=== PATIENT | male | born 1945 | race Caucasian/White ===

== ENCOUNTER 2025-01-24 08:58 | Inpatient (IN) | payer MEDICARE, SELFPAY ==
--- OUTSIDE RECORDS SUMMARY | 2024-05-18 13:46 | XMS_ITS | Continuity of Care Document ---
Author Name [facility] Organization [facility] Care Team Providers Care Ranch Hand Supervisor Name Role Phone [facility] Unavailable Unavailable Immunizations Combined list of available immunizations from the Department of Defense and Veterans Affairs facilities. 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 Location Location Details Encounter Type Encounter Number Reason For Visit Attending Provider ADM Date DC Date Status Disposition Source [facility] Outpatient Encounter [id number] 05/18 [facility] Valera
[2025-01-24] VITALS (16 sets, daily range): BP systolic 91–150; BP diastolic 42–94; PULSE 67–87; RESP 12–25; TEMP 36.2–36.7; O2SAT 86–100; BMI 47.5
--- NOTE | 2025-01-24 | ECHO_ITS ---
Patient Info Name: Rigo Singh Age: 79 years : 1945 Gender: Male Ht: 71 in Wt: 351 lbs BSA: 2.91 m2 HR: 67 bpm BP: 150 / 42 mmHg Heart Rhythm: Atrial Fibrillation Technical Quality: Fair Exam Date: 01/24/2025 3:46 PM Patient Status: I Admit Date: 01/24/2025 Exam Type: CA echo doppler color flow Staff Referring Physician: Licha Jones Manufacturing Sales Representative: Inocente Norris III Ordering Physician: Mary Alice Vee Attending Provider: Joel Canas Summary 1. Poor Apical Windows, EF appears normal in PLAX/PSAX. 2. 'D-shaped' septum in both systole and diastole consistent with right ventricular volume and pressure overload. 3. The left ventricular diastolic function is abnormal. 4. There is moderately increased left ventricular wall thickness. 5. Left ventricular systolic function is normal, estimated at 60-65. 6. Left ventricular chamber dimension is normal. 7. Right ventricular chamber dimension is severely enlarged. 8. Right ventricular systolic function is reduced. 9. There is mild aortic valve regurgitation. 10. There is severe aortic valve calcification. 11. Abnormal appearance of the aortic valve. Thickened and calcified and nonmobile non coronary cusp. Recommend KIRSTIN for further anatomical evaluation. 12. There is mild mitral valve regurgitation. 13. There is moderate tricuspid valve regurgitation. 14. Moderate pulmonary hypertension, estimated pulmonary arterial systolic pressure is 50 mmHg. 15. There is mild pulmonic regurgitation. 16. The aortic root size at the sinus of Valsalva is mildly dilated. 17. The prox ascending aorta size is moderately dilated. Left Ventricle Left ventricular chamber dimension is normal. Left ventricular systolic function is normal, estimated at 60-65. There is moderately increased left ventricular wall thickness. The left ventricular diastolic function is abnormal. 'D-shaped' septum in both systole and diastole consistent with right ventricular volume and pressure overload. Right Ventricle Right ventricular chamber dimension is severely enlarged. Right ventricular systolic function is reduced. Left Atria Left atrial chamber dimension is severely enlarged. Right Atria Right atrial chamber dimension is severely enlarged. Atrial Septum Intact interatrial septum visualized by color flow imaging. Aortic Valve There is no aortic valve stenosis. There is mild aortic valve regurgitation. There is severe aortic valve calcification. Abnormal appearance of the aortic valve. Thickened and calcified and nonmobile non coronary cusp. Recommend KIRSTIN for further anatomical evaluation. Pulmonic Valve The pulmonic valve is normal. There is no pulmonic valve stenosis. There is mild pulmonic regurgitation. Mitral Valve The mitral valve has thickened leaflets. There is no mitral valve stenosis. There is mild mitral valve regurgitation. Tricuspid Valve The tricuspid valve leaflets are normal. There is no significant tricuspid valve stenosis. There is moderate tricuspid valve regurgitation. Moderate pulmonary hypertension, estimated pulmonary arterial systolic pressure is 50 mmHg. Pericardium/Pleural The pericardium appears normal. There is no pericardial effusion. Inferior Vena Cava Dilated inferior vena cava with <50% collapse upon inspiration consistent with elevated right atrial pressure, 15 mmHg. Aorta The aortic root size at the sinus of Valsalva is mildly dilated. The prox ascending aorta size is moderately dilated. Left Ventricular Outflow Tract Name Value Normal LVOT 2D LVOT Diameter 2.4 cm LVOT Doppler LVOT Peak Velocity 108 cm/s LVOT Peak Gradient 5 mmHg LVOT Mean Gradient 2 mmHg LVOT VTI 21 cm LVOT VTI/AV VTI Ratio 0.8 LVOT Stroke Volume 94 ml LVOT CO 19.4 l/min LVOT CI 6.7 l/min/m2 Pulmonic Valve Name Value Normal PV Doppler PV Peak Velocity 88 cm/s PV Peak Gradient 3 mmHg PV Mean Gradient 1 mmHg Mitral Valve Name Value Normal MV Doppler MV Peak Gradient 6 mmHg MV Mean Gradient 1 mmHg MV Area (Cont Eq VTI) 3.6 cm2 MV Diastolic Function MV E Peak Velocity 141 cm/s MV A Peak Velocity 45 cm/s MV E/A 3.1 MV Decel Time (PW) 178 ms MV Annular TDI MV E/e' (Septal) 10.5 MV E/e' (Lateral) 10.5 MV E/e' (Average) 10.5 Tricuspid Valve Name Value Normal TV Regurgitation Doppler TR Peak Velocity 294 cm/s TR Peak Gradient 35 mmHg Estimated PAP/RSVP RA Pressure 15 mmHg <=5 PA Systolic Pressure 50 mmHg <36 RV Systolic Pressure 50 mmHg <36 TV Annular TDI TV Lateral Adriana s' Velocity 11.2 cm/s >=9.5 Aortic Valve Name Value Normal AV Doppler AV Peak Velocity 148 cm/s AV Peak Gradient 9 mmHg AV Mean Gradient 4 mmHg AV VTI 27 cm AV Area (Cont Eq VTI) 3.5 cm2 >=3.0 AV Area (Cont Eq Isai) 3.3 cm2 AV DI (Isai) 0.73 AV Regurgitation 2D LVOT Area 4.5 cm2 Ventricles Name Value Normal LV Dimensions 2D/MM IVS Diastolic Thickness (2D) 1.4 cm 0.6-1.0 LVID Diastole (2D) 4.8 cm 4.2-5.8 LVIW Diastolic Thickness (2D) 1.3 cm 0.6-1.0 LVID Systole (2D) 3.2 cm 2.5-4.0 LVOT Diameter 2.4 cm LV Mass (2D Cubed) 263.68 g 88.00-224.00 LV Mass Index (2D Cubed) 91 g/m2 49-115 Relative Wall Thickness (2D) 0.54 <=0.42 LV Fractional Shortening/Ejection Fraction 2D/MM LV Fractional Shortening (2D) 34 % 25-43 LV EF (2D Teichholz) 62 % Atria Name Value Normal LA Dimensions LA Volume (4C A-L) 155 ml LA Volume (BP A-L) 160 ml RA Dimensions RA Systolic Major [place] Length (4C) 7.9 cm 2.1-2.7 RA Area (4C) 49.0 cm2 <=18.0 Report Signatures
--- NOTE | ~2025-01-24 | XR_ITS ---
XR chest 1V portable 01/24/2025 09:15 Indication: Shortness of breath Procedure: AP portable chest Comparison: No prior studies for comparison. Findings: Cardiomegaly. Bilateral airspace disease is present which may represent edema or less likely pneumonia. No significant effusion or pneumothorax. Impression: 1: Bilateral airspace disease, most likely edema. Pneumonia less favored. 2: Cardiomegaly. Reviewed, dictated and finalized at location O. Impression: 1: Bilateral airspace disease, most likely edema. Pneumonia less favored. 2: Cardiomegaly.
--- NOTE | ~2025-01-24 | XR_ITS ---
XR chest 1V portable 01/28/2025 07:28 Indication: Pneumonia Procedure: AP portable chest Comparison: Comparison to multiple prior studies sequentially, with oldest reviewed study dated 01/26/2025. Findings: Persistent edema. Cardiomegaly. No significant interval change. No significant effusion or pneumothorax. Impression: 1: Stable mild edema. Reviewed, dictated and finalized at location O. Impression: 1: Stable mild edema.
--- NOTE | ~2025-01-24 | CT_ITS ---
EXAMINATION: 2. DATE: 01/24/2025 10:44 CDT INDICATION: Cough. Shortness of breath. Hypoxia. TECHNIQUE: Computed tomographic angiography (CTA) of the chest was performed with intravenous contrast. The dose-length product was 948.70 mGy-cm. Maximum intensity projection 3D-reconstructions of the aorta and other arteries were constructed by the technologist on a separate workstation. COMPARISON: None. FINDINGS: There is a 5 cm left thyroid nodule. A thyroid ultrasound is recommended. Small amount of nonspecific fluid in the visualized upper abdomen. Indeterminant 1.9 cm low-density lesion in the left lobe of the liver. There is a 6.7 cm cystic structure in the left upper abdomen which may represent an exophytic left renal cyst. Thoracic aorta is not aneurysmal. Tiny left-sided pleural effusion. Small right-sided pleural effusion. Heart is moderately enlarged. There are a few coronary artery calcifications. No pulmonary embolism identified. There are a few mildly enlarged mediastinal and hilar lymph nodes including a 2.0 cm left hilar lymph node, 1.5 cm subcarinal lymph node and a 1.3 cm right hilar lymph node. Mild elevation of the right hemidiaphragm. There is an enlarged 2.1 cm right supraclavicular lymph node. Moderate-sized patchy and groundglass opacities scattered throughout both lungs. Bones appear osteopenic. Multilevel degenerative change in the visualized spine. IMPRESSION: 1. No pulmonary embolism identified. 2. Moderate-sized patchy and groundglass opacities scattered throughout both lungs. Differential includes but is not limited to edema or pneumonia. Recommend follow-up to resolution. 3. Small right-sided pleural effusion. Tiny left-sided pleural effusion. 4. There is a 5 cm left thyroid nodule. A thyroid ultrasound is recommended. 5. Enlarged mediastinal and hilar lymph nodes. In addition, there is an enlarged 2.1 cm right supraclavicular lymph node. Differential includes inflammatory/infectious process. However, a malignant process is not excluded. A follow-up chest CT in 2-4 weeks following treatment is recommended for further assessment. 6. Indeterminate 1.9 cm low-density lesion in the left lobe of the liver. A liver mass CT is recommended. 7. Small amount of nonspecific fluid in the visualized upper abdomen. 8. There is a 6.7 cm cystic structure in the left upper abdomen which may represent an exophytic left renal cyst. Reviewed, dictated and finalized at location Q. IMPRESSION: 1. No pulmonary embolism identified. 2. Moderate-sized patchy and groundglass opacities scattered throughout both carlie ngs. Differential includes but is not limited to edema or pneumonia. Recommend follow-up to resolution. 3. Small right-sided pleural effusion. Tiny left-sided pleural effusion. 4. There is a 5 cm left thyroid nodule. A thyroid ultrasound is recommended. 5. Enlarged mediastinal and hilar lymph nodes. In addition, there is an enlarge d 2.1 cm right supraclavicular lymph node. Differential includes inflammatory/i nfectious process. However, a malignant process is not excluded. A follow-up est CT in 2-4 weeks following treatment is recommended for further assessment. 6. Indeterminate 1.9 cm low-density lesion in the left lobe of the liver. A chava er mass CT is recommended. 7. Small amount of nonspecific fluid in the visualized upper abdomen. 8. There is a 6.7 cm cystic structure in the left upper abdomen which may repre sent an exophytic left renal cyst.
--- NOTE | ~2025-01-24 | XR_ITS ---
EXAMINATION: XR chest 1V portable, 01/26/2025 16:18 CDT HISTORY: chf COMPARISON: No comparisons available. Technique: Single view. Findings: There are bilateral infiltrates superimposed on chronic lung disease. Moderate pulmonary venous congestion. No pneumothorax. Moderate cardiomegaly. Mediastinal and hilar contours are within normal limits. Bony thorax no acute abnormality. Impression: CHF. Superimposed probable pneumonia Reviewed, dictated and finalized at location A. Impression: CHF. Superimposed probable pneumonia
--- NOTE | ~2025-01-24 | CT_ITS ---
EXAMINATION: CTA abdomen pelvis DATE: 01/25/2025 10:10 CDT INDICATION: Liver mass seen on CTA TECHNIQUE: Computed tomographic angiography (CTA) of the abdomen and pelvis was performed with intravenous contrast. The dose-length product was 1940.88 mGy-cm. Maximum intensity projection 3D-reconstructions of the aorta and other arteries were constructed by the technologist on a separate workstation. COMPARISON: CTA chest 01/24/2025 FINDINGS: Small right-sided pleural effusion. Tiny left-sided pleural effusion. Redemonstration of a moderate-sized patchy groundglass opacity scattered throughout the visualized mid and lower lungs similar to the CT study from 01/24/2025.Small amount of perihepatic fluid. Spleen is heterogeneous presumably due to the timing of the contrast bolus. Adrenal glands are grossly unremarkable. Pancreas is unremarkable. Gallbladder is unremarkable. There are a few too small to characterize low-attenuation lesions in the kidneys. There is a 6.3 cm left renal cyst.There is a 3.3 cm left renal cyst. There is a 6.9 cm be nign cyst in the right kidney. Abdominal aorta is partially calcified but is not aneurysmal. There is a 1.9 cm cyst in the left lobe of the liver. No enlarged lymph nodes identified in the abdomen. Bladder is unremarkable. Small to moderate amount of nonspecific anasarca in the subcutaneous fat in the abdomen and pelvis, greater on the right. Small moderate amount of fluid in the pelvis. Moderate amount of stool. Mild diverticulosis. No dilated bowel loops. Borderline-enlarged nonspecific bilateral inguinal lymph nodes. Bones appear osteopenic. Multilevel degenerative change in the visualized spine. Small amount of fat stranding scattered throughout the abdomen and pelvis. CTA: Mild to moderate atherosclerotic disease in the visualized arterial vasculature in the abdomen and pelvis. Abdominal aorta is not aneurysmal. Small amount of atherosclerotic plaque at the origins of the superior mesenteric artery, celiac artery, renal arteries, inferior mesenteric artery. The visualized celiac artery and its branches, superior mesenteric artery and its branches, inferior mesenteric artery and single bilateral renal arteries are patent. Mild to moderate atherosclerotic disease in the bilateral common iliac arteries, bilateral internal/external iliac arteries bilateral common femoral arteries. IMPRESSION: 1. There is a 1.9 cm cyst in the left lobe of the liver. No liver mass identified. 2. Bilateral renal cysts. 3. Small right-sided pleural effusion. Tiny left-sided pleural effusion. 4. Redemonstration of a moderate-sized patchy groundglass opacity scattered throughout the visualized mid and lower lungs similar to the CT study from 01/24/2025. 5. Small amount of nonspecific fat stranding and fluid about the liver. Small to moderate amount of fluid and a small amount of fat stranding in the pelvis. 6. Small to moderate amount of nonspecific anasarca and subcutaneous fat stranding in the abdomen and pelvis, greater on the right. Reviewed, dictated and finalized at location Q. IMPRESSION: 1. There is a 1.9 cm cyst in the left lobe of the liver. No liver mass identifi ed. 2. Bilateral renal cysts. 3. Small right-sided pleural effusion. Tiny left-sided pleural effusion. 4. Redemonstration of a moderate-sized patchy groundglass opacity scattered thr oughout the visualized mid and lower lungs similar to the CT study from 01/25/20 25. 5. Small amount of nonspecific fat stranding and fluid about the liver. Small t o moderate amount of fluid and a small amount of fat stranding in the pelvis. 6. Small to moderate amount of nonspecific anasarca and subcutaneous fat strand ing in the abdomen and pelvis, greater on the right.
--- OUTSIDE RECORDS SUMMARY | 2025-01-24 08:15 | XMS_ITS | Encounter Summary ---
Author Organization [facility] Healthcare Address [address] [place] [address] Care Team Providers Care Residential Real Estate Sales Manager Name Role Phone Dequan Flores MD Primary Care Provider + Encounter Details Date Type Department Care Team (Late st Contact Info) Description 01/24/2025 8:15 AM CDT Office Visit [facility] at [address] [id number] Rachell Rosales PA [address] [place] [address] [address] [place] [address] Shortness of breath (Primary Dx); Hypoxia Social History Tobacco Use Types Packs/Day Years Used Date Smoking Tobacco: Former Cigarettes Q uit: 1998 Smokeless Tobacco: Never PHQ-2 Answer Date Recorded PHQ-2 Total Score (If total score is 3 or more points, staff should administer the PHQ-9) 0 09/21/2023 Sex and Gender Information Value Date Recorded Sex Assigned at Not on file Legal Sex Male 7:44 PM PICCOLOIST Gender Identity Not on file Sexual Orientation Not on file documented as of this encounter Last Filed Vital Signs Vital Sign Reading Time Taken Comments Blood Pressure 138/72 01/24/2025 8:19 AM CDT Pulse 98 01/24/2025 8:19 AM CDT Temperature 36.7 C (98.1 F) 01/24/2025 8:19 AM CDT Respiratory Rate - - Oxygen Saturation 85% 01/24/2025 8:21 AM CDT Without O2 Inhaled Oxygen Concentration - - Weight - - Height 180.3 cm (5' 10.98) 01/24/2025 8:19 AM C DT Body Mass Index - - documented in this encounter Progress Notes * Rachell Rosales PA - 01/24/2025 8:15 AM CDT Images from the original note were not included. Subjective/Objective Patient ID: Rigo Singh is a 79 y.o. male. Chief Complaint No chief complaint on file. Pt presents w/ sob increasing x few weeks. Reports cold symptoms x few weeks, did z pack and flonase w/ no relief. Presents at 82% on RA c/o sob. Denies cp or leg swelling. No fevers. Review of Systems All systems reviewed and are negative or non contributory for this patient's presentation today other than as stated in the HPI . Physical Exam Constitutional: Appearance: He is obese. HENT: Head: Normocephalic and atraumatic. Mouth/Throat: Pharynx: Oropharynx is clear. Eyes: Pupils: Pupils are equal, round, and reactive to light. Cardiovascular: Rate and Rhythm: Normal rate and regular rhythm. Pulmonary: Effort: Respiratory distress (mild tachypnea) present. Breath sounds: No wheezing or rhonchi. Musculoskeletal: General: Normal range of motion. Cervical back: Normal range of motion. Skin: General: Skin is warm and dry. Neurological: General: No focal deficit present. Mental Status: He is alert and oriented to person, place, and time. Psychiatric: Mood and Affect: Mood normal. Behavior: Behavior normal. Vitals: 01/24/25 0819 01/24/25 0821 BP: 138/72 Pulse: 98 Temp: 36.7 ??C (98.1 ??F) SpO2: 92% (!) 85% Height: 180.3 cm (5' 10.98) Assessment/Plan Pt presents to front desk person w/ increasing sob x few weeks w/ associated cold symptoms. Immediately given a wheelchair due to the severity of his sob and labored breathing, put on pulse ox and found to be hypoxic w/ oxygen of 82% on RA. Hx of afib, CVA, DM, on eliquis. No hx of asthma or COPD. Lungs clear on exam, no wheezing. Placed on 2L nasal canula and oxygen increased to 92-93%. Pt denies chestpain. EMS was called, pt transported to ED to find underlying cause of hypoxia including cardiac orrespiratory etiology. Diagnoses and all orders for this visit: Shortness of breath (Primary) Hypoxia No results found for this or any previous visit (from the past 4 hours). Disposition ER via EMS JARAD Hoyos 01/24/25 8:32 AM Cosigned by Asif Vail MD at 01/24/2025 8:41 AM CDT documented in this encounter Plan of Treatment Not on file documented as of this encounter Visit Diagnoses Diagnosis Shortness of breath- Primary Hypoxia Hypoxemia documented in this encounter Care Teams Residential Real Estate Sales Manager Relationship Specialty Start Date End Date Dequan Flores MD PCP - General 11/20/16 documented as of this encounter
--- NOTE | 2025-01-24 09:01 | ECG_ITS ---
Test Date: 2025-01-24 09:07:39 Measurements Intervals [place] Rate: 78 P: 0 ID: 0 QRS: 31 QRSD: 110 T: 41 QT: 406 QTc: 464 Interpretive Statements ATRIAL FIBRILLATION MINIMAL Q WAVES- INFERIOR LEADS BASELINE ARTIFACT- II, III ABNORMAL ECG No previous ECG available for comparison Electronically Signed On 01-24-2025 09:20:12 CDT by Chad oGdoy D.O.
[2025-01-24 09:32] LABS: Hematocrit 35.9 % (42.0-52.0); Hemoglobin 10.4 g/dL (14.0-18.0); Immature Granulocyte Percent A 0.6 % (0-0.5); Immature Platelet Fraction Pct 6.5 % (0.9-11.2); Lymphocytes Absolute Auto 1.00 K/mm3 (0.9-3.2); Mean Corpuscular HGB Conc 29.0 g/dl (32-36); Mean Corpuscular Hemoglobin 22.9 pg (26-34); Mean Corpuscular Volume 78.9 fl (80-100); Nucleated Red Blood Cells Absolute Auto 0.000 K/mm3 (0.0-0.012); Nucleated Red Blood Cells Perc 0.0 % (0.0-0.2); Platelet Count Result 93 k/mm3 (150-375); Red Blood Count 4.55 M/mm3 (4.6-6.20); White Blood Count 5.0 K/mm3 (4.5-10.0)
--- OUTSIDE RECORDS SUMMARY | 2025-01-24 09:38 | XMS_ITS | Clinical Summary ---
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 and pelvic lymph node dissection. Located in the there are multiple colonic diverticula, without evidence of diverticulitis. Additionally noted is a small hiatal hernia. The remainder of the gastrointestinal tract is unremarkable. There is no abdominal or pelvic lymphadenopathy. No intraperitoneal free fluid or free air. There is atherosclerotic calcification of the abdominal aorta and branch vessels. Bone windows demonstrate no suspicious lytic or blastic osseous lesions. IMPRESSION: 1. No acute CT abnormality of the chest, abdomen, pelvis. 2. Indeterminate 1.2 cm low-attenuation lesion within hepatic segment 2. Further evaluation with liver protocol CT or MRI is recommended on a non-emergent basis. 3. Indeterminate large left thyroid nodule, with retrosternal extension. If clinically indicated, this could be further evaluated with dedicated thyroid ultrasound. Requested By: ASHLEY SCHNEIDER M.D. Dictated By: ROSALINDA PUENTE M.D. on Dec 10 2014 10:26A This document has been electronically signed by: PUNEET YEBOAH M.D. on Dec 10 2014 11:37A [id number] Historical Provider MD [facility] CT PROCEDURES Final R esult from Last 3 Months or Most Recently Relevant to Health Maintenance Insurance MEDICARE [facility] MEDICARE [facility] Address: [facility] [address] [place] [address] [facility] Care Teams Shrinker Relationship Specialty Start Date End Date Dequan Flores MD PCP - General 11/20/16
--- OUTSIDE RECORDS SUMMARY | 2025-01-24 09:38 | XMS_ITS | Encounter Summary ---
Author Organization [facility] Healthcare Address [address] [place] [address] Care Team Providers Care Indoor Plant Technician Name Role Phone Dequan Flores MD Primary Care Provider + Encounter Details Date Type Department Care Team (Latest Contact Info) Description 12/05/2024 Results Follow-Up Cardiology Juliano Ordonez MD [address] [id number] Lipid panel Social History Tobacco Use Types Packs/Day Years Used Date Smoking Tobacco: Former Cigarettes Q uit: 1998 Smokeless Tobacco: Never PHQ-2 Answer Date Recorded PHQ-2 Total Score (If total score is 3 or more points, staff should administer the PHQ-9) 0 09/21/2023 Sex and Gender Information Value Date Recorded Sex Assigned at Not on file Legal Sex Male 7:44 PM [employer] Gender Identity Not on file Sexual Orientation Not on file documented as of this encounter Plan of Treatment Not on file documented as of this encounter Visit Diagnoses Not on filedocumented in this encounter Care Teams Indoor Plant Technician Relationship Specialty Start Date End Date Dequan Flores MD PCP - General 11/20/16 documented as of this encounter
[2025-01-24 09:47] LABS: Alanine Aminotransferase 14 U/L (6-50); Albumin Level 3.6 g/dL (3.5-5.1); Alkaline Phosphatase 88 U/L (38-126); Anion Gap 7 mmol/L (4-12); Aspartate Amino Transferase 18 U/L (17-59); Bilirubin,Total 1.7 mg/dL (0.2-1.3); Blood Urea Nitrogen 15 mg/dL (9-20); Calcium 8.6 mg/dL (8.4-10.2); Carbon Dioxide 25 mmol/L (22-30); Chloride 107 mmol/L (98-107); Estimated CRCL calculation 113 ml/min; Estimated Glomerular Filt Rate > 60; Glucose 160 mg/dL (65-110); Potassium 3.6 mmol/L (3.4-5.0); Sodium 139 mmol/L (137-145); Total Protein 6.9 g/dL (6.3-8.2)
[2025-01-24 10:07] LABS: Anisocytosis 1+
[2025-01-24 10:08] LABS: Influenza A QL RT-PCR Negative (Negative); Influenza B QL RT-PCR Negative (Negative); RSV RNA, RT-PCR Negative (Negative); SARS-CoV-2 RNA PCR Negative (Negative)
[2025-01-24 10:08] LABS: Hypochromasia Occasional; Schistocytes None Seen
--- NOTE | 2025-01-24 10:23 | ED_ITS ---
HPI - SOB/Dyspnea General Chief Complaint: Shortness of Breath/Dyspnea <JA Sim Last Filed: 01/24/25 10:53> Stated Complaint: SOB <JA Sim Last Filed: 01/24/25 10:53> Time Seen by Provider: 01/24/25 09:02 <JA Sim Last Filed: 01/24/25 10:53> Source: patient <JA Sim Last Filed: 01/24/25 10:53> Mode of arrival: EMS <JA Sim Last Filed: 01/24/25 10:53> Limitations: no limitations <JA Sim Last Filed: 01/24/25 10:53> History of Present Illness HPI Narrative: Patient is a 79-year-old male, with past medical history of hypertension, diabetes, AFib on Eliquis, who presents the ED via EMS with report of shortness of breath. Patient reports he has not felt well for the past 2 weeks. Reports sinus congestion/pressure, dry cough, shortness of breath. He went to an urgent care today and was noted to be hypoxic down to 85% on room air. He was placed on 4 L nasal cannula. Patient denies previous oxygen requirement. He denies previous history of CHF or COPD. He does report swelling in his lower extremities, but states this is chronic. Denies worsening of this recently. Denies chest pain. Denies fevers. Patient mentions he recently had black mold that was treated in his basement. < JA Sim Last Filed: 01/24/25 10:53> Related Data Allergies/Adverse Reactions: Allergies Allergy/AdvReac Type Severity Reaction Status Date / Time No Known Allergies Allergy Verified 01/24/25 09:17 <JA Sim Last Filed: 01/24/25 10:53> Review of Systems 2 Review of Systems: All systems reviewed & are unremarkable except as noted in HPI. <JA Sim Last Filed: 01/24/25 10:53> All systems reviewed & are unremarkable except as noted in HPI and below < Licha Jones PA-C - Last Filed: 01/24/25 10:53> [facility] Past Medical History Medical History: Medical History (Updated 01/24/25 @ 14:26 by Kaye Wu PA-C) Diabetes Hypertension Afib <Licha Jones PA-C - Last Filed: 01/24/25 10:53> Exam 2 Narrative: GENERAL: Well appearing, morbidly obese with BMI of 49.0, non-toxic, in no acute distress. HEAD: Normocephalic, atraumatic. RESPIRATORY: Airway patent, respirations nonlabored, mildly tachypneic. Decreased lung sounds in bases bilaterally. No wheezing. CARDIOVASCULAR: Regular rate and rhythm without murmurs, rubs, or gallops. MUSCULOSKELETAL: Moves all extremities. No gross deformities. Mild pitting edema to BLE, symmetric, no cellulitic changes. SKIN: Warm, dry, normal color. NEURO: A&O X3. Speech clear. Cranial nerves II-XII grossly intact. Steady gait. No ataxic movements. PSYCHIATRIC: Appropriate mood and affect. Normal interaction. <Licha Jones PA-C - Last Filed: 01/24/25 10:53> Course Course Emergency Course: Patient updated on his workup and need for admission <JEROME Kohli - Last Filed: 01/24/25 14:26> Consultations Consultation #1: Spoke with hospitalist about patient and workup who accepts admission < Kaye Wu PA-C - Last Filed: 01/24/25 14:26> Date: 01/24/25 <JA Kohli Last Filed: 01/24/25 14:26> Vital Signs Vital signs: Vital Signs Pulse Rate 73 01/24/25 09:01 Respiratory Rate 22 H 01/24/25 09:01 Blood Pressure 126/69 01/24/25 09:01 Pulse Oximetry 86 L 01/24/25 09:01 Oxygen Delivery Room Air 01/24/25 09:01 Temperature 98.1 F 01/24/25 09:14 Pulse Rate 76 01/24/25 13:59 Respiratory Rate 17 01/24/25 13:59 Blood Pressure 126/94 H 01/24/25 13:59 Pulse Oximetry 97 01/24/25 13:59 Oxygen Delivery Nasal Cannula 01/24/25 09:24 Oxygen Flow Rate 4 01/24/25 09:24 <Licha Jones PA-C - Last Filed: 01/24/25 10:53> Vital Signs Pulse Rate 73 01/24/25 09:01 Respiratory Rate 22 H 01/24/25 09:01 Blood Pressure 126/69 01/24/25 09:01 Pulse Oximetry 86 L 01/24/25 09:01 Oxygen Delivery Room Air 01/24/25 09:01 Temperature 98.1 F 01/24/25 09:14 Pulse Rate 76 01/24/25 13:59 Respiratory Rate 17 01/24/25 13:59 Blood Pressure 126/94 H 01/24/25 13:59 Pulse Oximetry 97 01/24/25 13:59 Oxygen Delivery Nasal Cannula 01/24/25 09:24 Oxygen Flow Rate 4 01/24/25 09:24 <Kaye Wu PA-C - Last Filed: 01/24/25 14:26> MDM - SOB/Dyspnea MDM Narrative Medical decision making narrative: Patient presented to ED with 2 week history of cough, congestion, URI symptoms, shortness of breath. Went to an urgent care today and was found to be hypoxic on room air. Placed on oxygen and sent here for further evaluation. Patient denies previous oxygen requirement. Currently on 4 L nasal cannula. Oxygen saturations remained stable on this currently. Vital signs are otherwise stable. Afebrile. Blood pressure stable. Cbc without leukocytosis. Mild anemia noted at 10.4. Slightly microcytic. No records to compare to. Thrombocytopenia also noted with platelet count of 93. Again no records to compare to. CMP is unremarkable. Kidney function is stable. Slight elevation of total bilirubin to 1.7, although remainder of LFTs are within normal range. Viral swabs are negative EKG with rate controlled AFib, no significant concerning ST changes Chest x-ray with cardiomegaly, likely pulmonary edema. Pneumonia last favored. Trop undetectable BNP pending CTA of chest was obtained. Care signed out to Kaye Wu PA-C at shift change pending remainder of w/u and admission to hospital. <Licha Jones PA-C - Last Filed: 01/24/25 10:53> Patient presented to ED with 2 week history of cough, congestion, URI symptoms, shortness of breath. Went to an urgent care today and was found to be hypoxic on room air. Placed on oxygen and sent here for further evaluation. Patient denies previous oxygen requirement. Currently on 4 L nasal cannula. Oxygen saturations remained stable on this currently. Vital signs are otherwise stable. Afebrile. Blood pressure stable. Cbc without leukocytosis. Mild anemia noted at 10.4. Slightly microcytic. No records to compare to. Thrombocytopenia also noted with platelet count of 93. Again no records to compare to. CMP is unremarkable. Kidney function is stable. Slight elevation of total bilirubin to 1.7, although remainder of LFTs are within normal range. Viral swabs are negative EKG with rate controlled AFib, no significant concerning ST changes Chest x-ray with cardiomegaly, likely pulmonary edema. Pneumonia last favored. Trop undetectable BNP pending CTA of chest was obtained. Care signed out to Kaye Wu PA-C at shift change pending remainder of w/u and admission to hospital. CTA showing no evidence for PE. Moderate size patchy ground-glass opacities scattered throughout the lungs. Bilateral pleural effusions. Thyroid nodule. Lymphadenopathy. Liver lesion. Renal cyst. Blood cultures obtained. Patient started on IV antibiotics. Spoke with hospitalist about patient and workup who accepts admission <Kaye Wu PA-C - Last Filed: 01/24/25 14:26> Differential Diagnosis Differential diagnosis: Likely congestive heart failure, community acquired pneumonia and pulmonary embolism <Kaye Wu PA-C - Last Filed: 01/24/25 14:26> Medical Records Attestation: I reviewed the patient's medical records. <Licha Jones PA-C - Last Filed: 01/24/25 10:53> Lab Data Attestation: I reviewed the patient's lab results. <JA Sim Last Filed: 01/24/25 10:53> Result diagrams: 01/24/25 09:21 01/24/25 09:21 <JA Sim Last Filed: 01/24/25 10:53> Labs: Lab Results 01/24/25 01/24/25 01/24/25 Range/Units 09:21 09:24 10:54 WBC 5.0 (4.5-10.0) K/mm3 RBC 4.55 L (4.6-6.20) M/mm3 Hgb 10.4 L (14.0-18.0) g/dL Hct 35.9 L (42.0-52.0) % MCV 78.9 L (80-100) fl MCH 22.9 L (26-34) pg MCHC 29.0 L (32-36) g/dl RDW 17.1 H (11.5-14.5) % Plt Count 93 L (150-375) k/mm3 MPV 9.9 (7.4-10.4) fl Immature Gran % (Auto) 0.6 H (0-0.5) % Neut % (Auto) 68.9 (45.5-73.1) % Lymph % (Auto) 20.2 (18.3-44.2) % Arthur % (Auto) 9.1 H (2.6-8.5) % Eos % (Auto) 0.8 (0-4.4) % Baso % (Auto) 0.4 (0.2-1.2) % Lymph # (Auto) 1.00 (0.9-3.2) K/mm3 Arthur # (Auto) 0.5 (0.1-0.6) K/mm3 Eos # (Auto) 0.0 (0-0.3) K/mm3 Baso # (Auto) 0.0 (0.0-0.1) K/mm3 Abs Immat Gran (auto) 0.03 (0.00-0.031) K/mm3 Absolute Neuts (auto) 3.4 (1.3-6.7) K/mm3 Absolute Nucleated RBC 0.000 (0.0-0.012) K/mm3 Band Neutrophils % Not Reportable Nucleated RBC % 0.0 (0.0-0.2) % Platelet Estimate Decreased (Adequate) % Immature Plt Fraction 6.5 (0.9-11.2) % Hypochromasia Occasional Anisocytosis 1+ Schistocytes None seen PT 19.7 H (11.1-14.7) Seconds INR 1.7 APTT 33.8 (22.3-36.8) Seconds Methemoglobin 0.3 (0-1.5) %THb Sodium 139 (137-145) mmol/L Potassium 3.6 (3.4-5.0) mmol/L Chloride 107 (98-107) mmol/L Carbon Dioxide 25 (22-30) mmol/L Anion Gap 7 (4-12) mmol/L BUN 15 (9-20) mg/dL Creatinine 0.72 (0.7-1.3) mg/dL Estim Creat Clear Calc 113 ml/min Estimated GFR > 60 (59 - ) Glucose 160 H (65-110) mg/dL Calcium 8.6 (8.4-10.2) mg/dL Total Bilirubin 1.7 H (0.2-1.3) mg/dL AST 18 (17-59) U/L ALT 14 (6-50) U/L Alkaline Phosphatase 88 (38-126) U/L Troponin I < 0.012 (0.000-0.034) ng/mL NT-Pro-B Natriuret Pep (19.9-100) pg/mL Total Protein 6.9 (6.3-8.2) g/dL Albumin 3.6 (3.5-5.1) g/dL Influenza A (RT-PCR) Negative (Negative) Influenza B (RT-PCR) Negative (Negative) RSV (RT-PCR) Negative (Negative) SARS-CoV-2 RNA (RT-PCR) Negative (Negative) 01/24/25 Range/Units 11:22 WBC (4.5-10.0) K/mm3 RBC (4.6-6.20) M/mm3 Hgb (14.0-18.0) g/dL Hct (42.0-52.0) % MCV (80-100) fl MCH (26-34) pg MCHC (32-36) g/dl RDW (11.5-14.5) % Plt Count (150-375) k/mm3 MPV (7.4-10.4) fl Immature Gran % (Auto) (0-0.5) % Neut % (Auto) (45.5-73.1) % Lymph % (Auto) (18.3-44.2) % Arthur % (Auto) (2.6-8.5) % Eos % (Auto) (0-4.4) % Baso % (Auto) (0.2-1.2) % Lymph # (Auto) (0.9-3.2) K/mm3 Arthur # (Auto) (0.1-0.6) K/mm3 Eos # (Auto) (0-0.3) K/mm3 Baso # (Auto) (0.0-0.1) K/mm3 Abs Immat Gran (auto) (0.00-0.031) K/mm3 Absolute Neuts (auto) (1.3-6.7) K/mm3 Absolute Nucleated RBC (0.0-0.012) K/mm3 Band Neutrophils % Nucleated RBC % (0.0-0.2) % Platelet Estimate (Adequate) % Immature Plt Fraction (0.9-11.2) % Hypochromasia Anisocytosis Schistocytes PT (11.1-14.7) Seconds INR APTT (22.3-36.8) Seconds Methemoglobin (0-1.5) %THb Sodium (137-145) mmol/L Potassium (3.4-5.0) mmol/L Chloride (98-107) mmol/L Carbon Dioxide (22-30) mmol/L Anion Gap (4-12) mmol/L BUN (9-20) mg/dL Creatinine (0.7-1.3) mg/dL Estim Creat Clear Calc ml/min Estimated GFR (59 - ) Glucose (65-110) mg/dL Calcium (8.4-10.2) mg/dL Total Bilirubin (0.2-1.3) mg/dL AST (17-59) U/L ALT (6-50) U/L Alkaline Phosphatase (38-126) U/L Troponin I (0.000-0.034) ng/mL NT-Pro-B Natriuret Pep 1030 H (19.9-100) pg/mL Total Protein (6.3-8.2) g/dL Albumin (3.5-5.1) g/dL Influenza A (RT-PCR) (Negative) Influenza B (RT-PCR) (Negative) RSV (RT-PCR) (Negative) SARS-CoV-2 RNA (RT-PCR) (Negative) <JA Sim Last Filed: 01/24/25 10:53> Lab Results 01/24/25 01/24/25 01/24/25 Range/Units 09:21 09:24 10:54 WBC 5.0 (4.5-10.0) K/mm3 RBC 4.55 L (4.6-6.20) M/mm3 Hgb 10.4 L (14.0-18.0) g/dL Hct 35.9 L (42.0-52.0) % MCV 78.9 L (80-100) fl MCH 22.9 L (26-34) pg MCHC 29.0 L (32-36) g/dl RDW 17.1 H (11.5-14.5) % Plt Count 93 L (150-375) k/mm3 MPV 9.9 (7.4-10.4) fl Immature Gran % (Auto) 0.6 H (0-0.5) % Neut % (Auto) 68.9 (45.5-73.1) % Lymph % (Auto) 20.2 (18.3-44.2) % Arthur % (Auto) 9.1 H (2.6-8.5) % Eos % (Auto) 0.8 (0-4.4) % Baso % (Auto) 0.4 (0.2-1.2) % Lymph # (Auto) 1.00 (0.9-3.2) K/mm3 Arthur # (Auto) 0.5 (0.1-0.6) K/mm3 Eos # (Auto) 0.0 (0-0.3) K/mm3 Baso # (Auto) 0.0 (0.0-0.1) K/mm3 Abs Immat Gran (auto) 0.03 (0.00-0.031) K/mm3 Absolute Neuts (auto) 3.4 (1.3-6.7) K/mm3 Absolute Nucleated RBC 0.000 (0.0-0.012) K/mm3 Band Neutrophils % Not Reportable Nucleated RBC % 0.0 (0.0-0.2) % Platelet Estimate Decreased (Adequate) % Immature Plt Fraction 6.5 (0.9-11.2) % Hypochromasia Occasional Anisocytosis 1+ Schistocytes None seen PT 19.7 H (11.1-14.7) Seconds INR 1.7 APTT 33.8 (22.3-36.8) Seconds Methemoglobin 0.3 (0-1.5) %THb Sodium 139 (137-145) mmol/L Potassium 3.6 (3.4-5.0) mmol/L Chloride 107 (98-107) mmol/L Carbon Dioxide 25 (22-30) mmol/L Anion Gap 7 (4-12) mmol/L BUN 15 (9-20) mg/dL Creatinine 0.72 (0.7-1.3) mg/dL Estim Creat Clear Calc 113 ml/min Estimated GFR > 60 (59 - ) Glucose 160 H (65-110) mg/dL Calcium 8.6 (8.4-10.2) mg/dL Total Bilirubin 1.7 H (0.2-1.3) mg/dL AST 18 (17-59) U/L ALT 14 (6-50) U/L Alkaline Phosphatase 88 (38-126) U/L Troponin I < 0.012 (0.000-0.034) ng/mL NT-Pro-B Natriuret Pep (19.9-100) pg/mL Total Protein 6.9 (6.3-8.2) g/dL Albumin 3.6 (3.5-5.1) g/dL Influenza A (RT-PCR) Negative (Negative) Influenza B (RT-PCR) Negative (Negative) RSV (RT-PCR) Negative (Negative) SARS-CoV-2 RNA (RT-PCR) Negative (Negative) 01/24/25 Range/Units 11:22 WBC (4.5-10.0) K/mm3 RBC (4.6-6.20) M/mm3 Hgb (14.0-18.0) g/dL Hct (42.0-52.0) % MCV (80-100) fl MCH (26-34) pg MCHC (32-36) g/dl RDW (11.5-14.5) % Plt Count (150-375) k/mm3 MPV (7.4-10.4) fl Immature Gran % (Auto) (0-0.5) % Neut % (Auto) (45.5-73.1) % Lymph % (Auto) (18.3-44.2) % Arthur % (Auto) (2.6-8.5) % Eos % (Auto) (0-4.4) % Baso % (Auto) (0.2-1.2) % Lymph # (Auto) (0.9-3.2) K/mm3 Arthur # (Auto) (0.1-0.6) K/mm3 Eos # (Auto) (0-0.3) K/mm3 Baso # (Auto) (0.0-0.1) K/mm3 Abs Immat Gran (auto) (0.00-0.031) K/mm3 Absolute Neuts (auto) (1.3-6.7) K/mm3 Absolute Nucleated RBC (0.0-0.012) K/mm3 Band Neutrophils % Nucleated RBC % (0.0-0.2) % Platelet Estimate (Adequate) % Immature Plt Fraction (0.9-11.2) % Hypochromasia Anisocytosis Schistocytes PT (11.1-14.7) Seconds INR APTT (22.3-36.8) Seconds Methemoglobin (0-1.5) %THb Sodium (137-145) mmol/L Potassium (3.4-5.0) mmol/L Chloride (98-107) mmol/L Carbon Dioxide (22-30) mmol/L Anion Gap (4-12) mmol/L BUN (9-20) mg/dL Creatinine (0.7-1.3) mg/dL Estim Creat Clear Calc ml/min Estimated GFR (59 - ) Glucose (65-110) mg/dL Calcium (8.4-10.2) mg/dL Total Bilirubin (0.2-1.3) mg/dL AST (17-59) U/L ALT (6-50) U/L Alkaline Phosphatase (38-126) U/L Troponin I (0.000-0.034) ng/mL NT-Pro-B Natriuret Pep 1030 H (19.9-100) pg/mL Total Protein (6.3-8.2) g/dL Albumin (3.5-5.1) g/dL Influenza A (RT-PCR) (Negative) Influenza B (RT-PCR) (Negative) RSV (RT-PCR) (Negative) SARS-CoV-2 RNA (RT-PCR) (Negative) <JA Kohli Last Filed: 01/24/25 14:26> ABG Data ABG results: 01/24/25 10:54 Puncture Site Right radial ABG pH 7.360 ABG pCO2 42.7 ABG pO2 Not Reportable ABG PO2/FiO2 Ratio Not Reportable ABG HCO3 23.6 ABG O2 Saturation Not Reportable ABG O2 Content Not Reportable ABG Base Excess -1.8 A-a Gradient Not Reportable Oxyhemoglobin 93.1 Carboxyhemoglobin 1.5 Reduced Hemoglobin 5.1 H Total Hemoglobin 11.5 L O2 Delivery Device Nasal cannula O2 Liters/Min 3.0 FiO2 32 <Licha Jones PA-C - Last Filed: 01/24/25 10:53> 01/24/25 10:54 Puncture Site Right radial ABG pH 7.360 ABG pCO2 42.7 ABG pO2 Not Reportable ABG PO2/FiO2 Ratio Not Reportable ABG HCO3 23.6 ABG O2 Saturation Not Reportable ABG O2 Content Not Reportable ABG Base Excess -1.8 A-a Gradient Not Reportable Oxyhemoglobin 93.1 Carboxyhemoglobin 1.5 Reduced Hemoglobin 5.1 H Total Hemoglobin 11.5 L O2 Delivery Device Nasal cannula O2 Liters/Min 3.0 FiO2 32 <JA Kohli Last Filed: 01/24/25 14:26> Imaging Data Attestation: I personally reviewed and interpreted this imaging study as follows: < Licha Jones PA-C - Last Filed: 01/24/25 10:53> Radiologist's impression: ITS Impressions Chest X-Ray 01/24/25 09:17 Impression: 1: Bilateral airspace disease, most likely edema. Pneumonia less favored. 2: Cardiomegaly. Chest CTA 01/24/25 10:43 IMPRESSION: 1. No pulmonary embolism identified. 2. Moderate-sized patchy and groundglass opacities scattered throughout both lungs. Differential includes but is not limited to edema or pneumonia. Recommend follow-up to resolution. 3. Small right-sided pleural effusion. Tiny left-sided pleural effusion. 4. There is a 5 cm left thyroid nodule. A thyroid ultrasound is recommended. 5. Enlarged mediastinal and hilar lymph nodes. In addition, there is an enlarged 2.1 cm right supraclavicular lymph node. Differential includes inflammatory/infectious process. However, a malignant process is not excluded. A follow-up chest CT in 2-4 weeks following treatment is recommended for further assessment. 6. Indeterminate 1.9 cm low-density lesion in the left lobe of the liver. A liver mass CT is recommended. 7. Small amount of nonspecific fluid in the visualized upper abdomen. 8. There is a 6.7 cm cystic structure in the left upper abdomen which may represent an exophytic left renal cyst. <JA Kohli Last Filed: 01/24/25 14:26> ECG Data EKG #1: Attestation: I personally reviewed and interpreted this ECG as follows: <JA Sim Last Filed: 01/24/25 10:53> ECG completion date: 01/24/25 <JA Sim Last Filed: 01/24/25 10:53> ECG completion time: 09:07 <JA Sim Last Filed: 01/24/25 10:53> EKG Interpretation: normal rate (78), atrial fibrillation and non-specific ST changes < JA Sim Last Filed: 01/24/25 10:53> Critical Care Time Critical Care Time Critical Care Time: Yes <JA Kohli Last Filed: 01/24/25 14:26> Total Critical Care Time: 35 <JA Kohli Last Filed: 01/24/25 14:26> Discharge Plan Discharge Clinical Impression: Acute hypoxic respiratory failure, Multifocal pneumonia, Thyroid nodule, Lesion of liver, Lymphadenopathy <JA Sim Last Filed: 01/24/25 10:53> Patient Disposition: Still a Patient <JA Sim Last Filed: 01/24/25 10:53> Condition: Improved <JA Sim Last Filed: 01/24/25 10:53>
[2025-01-24 10:29] LABS: INR 1.7; Prothrombin Time 19.7 Seconds (11.1-14.7)
[2025-01-24 10:30] LABS: Partial Thromboplastin Time 33.8 Seconds (22.3-36.8)
[2025-01-24 10:40] LABS: Troponin I < 0.012 ng/mL (0.000-0.034)
[2025-01-24 11:00] LABS: Carboxyhemoglobin 1.5 % THb (0-2.0); Fractional Inspired Oxygen 32 %; HCO3 ABG 23.6 mEq/l (22.0-26.0); Methemoglobin ABG 0.3 %THb (0-1.5); PCO2 ABG 42.7 mmHg (35.0-45.0); Reduced Hemoglobin 5.1 %THb (0-5.0)
[2025-01-24 11:04] LABS: Liters per Minute 3.0 LPM; Modified Allen's Test Pass; Site Drawn RIGHT RADIAL
[2025-01-24] MEDS: cefTRIAXone 1 GM in SODIUM CHLORIDE 0.9% IV 50 ML 100 ML IVPB (11:30)
--- NOTE | 2025-01-24 11:35 | PCRCNOTE ---
ABG done late due to pt going to get CXR.
[2025-01-24 11:54] LABS: NT Pro B Type Natriuretic Pept 1030 pg/mL (19.9-100)
[2025-01-24] MEDS: AZITHROMYCIN IV 500 MG in SODIUM CHLORIDE 0.9% IV 250 ML IVPB (11:54)
--- NOTE | 2025-01-24 14:09 | P.HP_ITS ---
H&P: HPI History of Present Illness Date/Time: 01/24/25 14:09 Chief Complaint: Shortness of breath Narrative: 79-year-old male past medical history prostate cancer, hypertension, diabetes, AFib presents the hospital with shortness of breath. He states that this has been going on for a few weeks progressively getting worse. Patient states that he has been cleaning up the basement due to his passing recently. He states that there is black mold in the basement that he was trying to fix a spent several days on there. He states that after that he started having respiratory complaints. Patient states that his recently passed July due to breast cancer with metastases to the brain. 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 He has complained of intermittent leg swell after the loss of his with abdominal girth increasing. Lab work in the ED shows hemoglobin of 10.4, platelets of 93, ABG within normal limits, glucose 160, proBNP 1030, influenza A/B, RSV, COVID negative. Chest x- ray shows bilateral or else face disease most likely edema versus pneumonia And cardiomegaly. Chest CTA shows no pulmonary embolism however there is moderate size patchy and ground-glass opacities scattered throughout both lungs edema versus pneumonia. There are several other incidental findings. See report for details Review of Systems Review of Systems: 12 systems were reviewed and are negativ e except for as per HPI. [facility] Past Medical History Medical History (Updated 01/24/25 @ 19:46 by Mary Alice Vee APRN) Prostate cancer Diabetes Hypertension Afib Surgical History Surgical History (Updated 01/24/25 @ 19:46 by Mary Alice Vee APRN) History of prostate surgery Family History Family History (Updated 01/24/25 @ 15:07 by Rosa Freeman RN) Daughter No problems noted. Father History of heart bypass surgery Social History Social History Smoking status: Former smoker Tobacco type: cigarettes, pipe and cigars Alcohol intake: current Drinks per week: 1 Substance use: never Lack of Transportation: No Lack of Food: Never True Current Housing: I Have Housing Concerned About Future Housing: No Difficulty Paying Gas/Electric Bills: No Difficulty Paying for Meds: No Currently Unemployed: No Education: Trade/Vocational Certificate Difficulty w/ Childcare or Family Care: No Spiritual care concerns: No Meds Home Medications and Allergies Home Medications ?Medication ?Instructions ?Recorded ?Confirmed ?Type amlodipine 10 mg tablet 10 mg PO DAILY 01/24/2512/30 History apixaban 5 mg tablet (Eliquis) 5 mg PO Q12H 01/24/25 0 01/24/25 History atorvastatin 40 mg tablet 40 mg PO DAILY 01/24/2512/30 History carvedilol 25 mg tablet 25 mg PO Q12H 01/24/2501/24 History dapagliflozin propanediol 10 mg 10 mg PO DAILY 5 01/24/25 History tablet (Farxiga) glimepiride 4 mg tablet 4 mg PO DAILY 01/24/2501/24 History irbesartan 300 mg tablet 300 mg PO DAILY 01/24/25 History metformin 500 mg tablet 500 mg PO DAILY 01/24/25 History pantoprazole 40 mg tablet,delayed 40 mg PO DAILY 01/2401/24/25 History release triamterene 37.5 1 tablet PO DAILY 01/24/25 0 01/24/25 History mg-hydrochlorothiazide 25 mg tablet Allergies Allergy/AdvReac Type Severity Reaction Status Date / Time No Known Allergies Allergy Verified 01/24/25 15:21 Vital Signs Vital Signs - 24 hr 01/24/25 09:01 01/24/25 09:06 01/24/25 09:14 Temperature Pulse Rate 73 79 77 Respiratory Rate 22 H 19 Blood Pressure 126/69 126/69 Pulse Oximetry 86 L 96 Oxygen Delivery Room Air Oxygen Flow Rate 01/24/25 09:14 01/24/25 09:14 01/24/25 09:24 Temperature 98.1 F Pulse Rate 81 Respiratory Rate 22 H Blood Pressure 125/81 Pulse Oximetry 99 100 97 Oxygen Delivery Nasal Cannula Nasal Cannula Oxygen Flow Rate 4 4 01/24/25 12:01 01/24/25 12:03 01/24/25 12:17 Temperature Pulse Rate 73 71 72 Respiratory Rate 15 25 H 15 Blood Pressure 123/79 123/79 91/62 L Pulse Oximetry 99 94 90 Oxygen Delivery Oxygen Flow Rate 01/24/25 12:31 01/24/25 12:46 01/24/25 13:59 Temperature Pulse Rate 78 69 76 Respiratory Rate 12 16 17 Blood Pressure 92/74 L 126/72 126/94 H Pulse Oximetry 96 96 97 Oxygen Delivery Oxygen Flow Rate Exam Narrative: General: Mild distress, tachypneic HEENT: normocephalic, atraumatic. Mucous membranes moist. EOMI, PERRLA, bilater al sclera anicteric, no conjunctival injection. Neck supple without JVD, lymphadenopathy, or bruit. Respiratory: clear/diminished to ascultation bilaterally. No rales/rhonic/wheezes. Cardiovascular: Regular rate and rhythm, normal S1-S2 upon ascultation. No murmurs, rubs, or clicks. PMI is nondisplaced, capillary refill less than 3 second. Abdomen: Obese, Soft, round, no pulsatile masses, nondistended and nontender. No rebound, no guarding. No CVA tenderness, no hepatosplenomegaly. Bowel sounds present to all four quadrants. No high pitch or tinkling sounds, resonant to percussion. Extremities: No cyanosis, clubbing, Pulses are palpable 2/2. Active ROM to all four extremities. 2+ edema Neuro: Alert and orientated x 4. PERRLA. Cranial nerves 2-12 intact without focal deficit. Skin: Warm, dry, and intact, without rash, erythema, or lesion. Psych: pleasant, cooperative, normal speech, normal affect, no hallucinations, no dysarthia H&P: Results Labs Labs: Short CBC 01/24/25 Range/Units 09:21 WBC 5.0 (4.5-10.0) K/mm3 Hgb 10.4 L (14.0-18.0) g/dL Hct 35.9 L (42.0-52.0) % Plt Count 93 L (150-375) k/mm3 BMP 01/24/25 09:21 Sodium 139 Potassium 3.6 Chloride 107 Carbon Dioxide 25 BUN 15 Creatinine 0.72 Glucose 160 H Calcium 8.6 Cardiac Enzymes 01/24/25 Range/Units 09:21 Troponin I < 0.012 (0.000-0.034) ng/mL Liver Function 01/24/25 Range/Units 09:21 Total Bilirubin 1.7 H (0.2-1.3) mg/dL AST 18 (17-59) U/L ALT 14 (6-50) U/L Alkaline Phosphatase 88 (38-126) U/L Albumin 3.6 (3.5-5.1) g/dL Imaging CT scan - chest: Radiologist's impression: [facility] [address] [place] [id number] Scan Report Signed Patient: Rigo Singh : 1945 MR#: [id number] Age: 79 Acct:[id number] Loc: [facility] ADM Date: 01/24/[address]: Ordering Physician: Licha Jones PA-C Date of Service: 01/24/25 Procedure(s): CTA chest PE protocol Accession Number(s): [id number] cc: Licha Jones PA-C; UNKNOWN,DOCTOR~ EXAMINATION: 2. DATE: 01/24/2025 10:44 CDT INDICATION: Cough. Shortness of breath. Hypoxia. TECHNIQUE: Computed tomographic angiography (CTA) of the chest was performed with intravenous contrast. The dose-length product was 948.70 mGy-cm. Maximum intensity projection 3D-reconstructions of the aorta and other arteries were constructed by the technologist on a separate workstation. COMPARISON: None. FINDINGS: There is a 5 cm left thyroid nodule. A thyroid ultrasound is recommended. Small amount of nonspecific fluid in the visualized upper abdomen. Indeterminant 1.9 cm low-density lesion in the left lobe of the liver. There is a 6.7 cm cystic structure in the left upper abdomen which may represent an exophytic left renal cyst. Thoracic aorta is not aneurysmal. Tiny left-sided pleural effusion. Small right-sided pleural effusion. Heart is moderately enlarged. There are a few coronary artery calcifications. No pulmonary embolism identified. There are a few mildly enlarged mediastinal and hilar lymph nodes including a 2.0 cm left hilar lymph node, 1.5 cm subcarinal lymph node and a 1.3 cm right hilar lymph node. Mild elevation of the right hemidiaphragm. There is an enlarged 2.1 cm right supraclavicular lymph node. Moderate-sized patchy and groundglass opacities scattered throughout both lungs. Bones appear osteopenic. Multilevel degenerative change in the visualized spine. IMPRESSION: 1. No pulmonary embolism identified. 2. Moderate-sized patchy and groundglass opacities scattered throughout both lungs. Differential includes but is not limited to edema or pneumonia. Recommend follow-up to resolution. 3. Small right-sided pleural effusion. Tiny left-sided pleural effusion. 4. There is a 5 cm left thyroid nodule. A thyroid ultrasound is recommended. 5. Enlarged mediastinal and hilar lymph nodes. In addition, there is an enlarged 2.1 cm right supraclavicular lymph node. Differential includes inflammatory/infectious process. However, a malignant process is not excluded. A follow-up chest CT in 2-4 weeks following treatment is recommended for further assessment. 6. Indeterminate 1.9 cm low-density lesion in the left lobe of the liver. A liver mass CT is recommended. 7. Small amount of nonspecific fluid in the visualized upper abdomen. 8. There is a 6.7 cm cystic structure in the left upper abdomen which may represent an exophytic left renal cyst. Assessment and Plan Assessment and plan (1) Pulmonary edema: Code(s): J81.1 - Chronic pulmonary edema Status: Acute Assessment and Plan: With elevated BNP, and lower extremity swelling Cardiology consulted IV Lasix x1 Echocardiogram pending (2) Pneumonia: Code(s): J18.9 - Pneumonia, unspecified organism Status: Acute Assessment and Plan: IV Rocephin and azithromycin Blood cultures pending Altagraciafencharity Hartmann Incentive spirometer (3) Pleural effusion: Code(s): J90 - Pleural effusion, not elsewhere classified Status: Acute Assessment and Plan: Repeat x-ray in the morning Will try to manage diuretics (4) Acute hypoxic respiratory failure: Code(s): J96.01 - Acute respiratory failure with hypoxia Status: Acute Assessment and Plan: Patient was found to have a pulse ox in the 80s at urgent Secondary to above Wean oxygen stable (5) Anemia: Code(s): D64.9 - Anemia, unspecified Status: Acute Assessment and Plan: Anemia workup (6) Diabetes: Code(s): E11.9 - Type 2 diabetes mellitus without complications Status: Acute Assessment and Plan: Diabetic diet Accu-Yeniks a.cKarissa HS [facility] Hold home anti-hyperglycemic medications (7) Thyroid nodule: Code(s): E04.1 - Nontoxic single thyroid nodule Status: Acute Assessment and Plan: There is a 5 cm left thyroid nodule. TSH pending If abnormal recommending inpatient thyroid ultrasound (8) Liver lesion: Code(s): K76.9 - Liver disease, unspecified Status: Acute Assessment and Plan: Indeterminate 1.9 cm low-density lesion in the left lobe of the liver. CTA abdomen pelvis tomorrow as patient is already received contrast for today Patient states he is willing had CTA however he is unsure of a oncology consult at this time as he had a bad experience with his 's oncologist (9) Renal cyst: Code(s): N28.1 - Cyst of kidney, acquired Status: Acute Assessment and Plan: There is a 6.7 cm cystic structure in the left upper abdomen which may represent an exophytic left renal cyst. CTA abdomen pelvis pending L (10) Lymph node enlargement: Code(s): R59.9 - Enlarged lymph nodes, unspecified Status: Acute Assessment and Plan: Enlarged mediastinal and hilar lymph nodes. In addition, there is an enlarged 2.1 cm right supraclavicular lymph node. Differential includes inflammatory/infectious process. However, a malignant process is not excluded. A follow-up chest CT in 2-4 weeks following treatment is recommended for further assessment. (11) Afib: Code(s): I48.91 - Unspecified atrial fibrillation Status: Acute Assessment and Plan: Continue Eliquis, Avapro and carvedilol, (12) Hypertension: Code(s): I10 - Essential (primary) hypertension Status: Acute Assessment and Plan: Continue Triamterene and amlodipine Quality VTE Prophylaxis VTE prophylaxis: mechanical ordered and pharmacologic ordered Hospitalist MIPS Advance Care Plan I have confirmed that the patient's Advanced Care Plan is present, code status is documented, or surrogate decision maker is listed in patient medical record.: Yes Medication Reconciliation I have utilized all available resources to obtain, update and review the patients current medications (includes all prescriptions, OTC, herbals, cannabis, and nutritional supplements).: Yes
--- NOTE | 2025-01-24 15:02 | ADMGEN ---
This patient, Rigo Singh, was admitted to [address] [facility] Surg Room 322-02. Patient/family oriented to hospital policies and general routines including ID bracelet, bed and alarms, visiting hours, pain management, procedures, bathroom and other care routines, personal items, smoking policy, room service/diet, and visiting hours. Information on how to activate the Rapid Response Team has been discussed. Patient/Family are encouraged to report perceived risks to care and to ask questions if they do not understand what they are told or what they should do. Report from Li in the ER.
[2025-01-24] MEDS: FUROSEMIDE INJ 40 MG/4 ML VIAL 20 MG IV PUSH (15:36)
[2025-01-24] MEDS: guaiFENesin 12 HR 600 MG TABCR 1200 MG PO (19:56)
[2025-01-24] MEDS: IPRATROPIUM 0.5 MG/ALBUTEROL SULFATE 2.5 MG AMPUL.NEB 3 ML INHALATION (20:31)
[2025-01-24] MEDS: APIXABAN 5 MG TABLET PO (21:00)
[2025-01-25] VITALS (17 sets, daily range): BP systolic 90–142; BP diastolic 55–88; PULSE 68–90; RESP 16–20; TEMP 36–36.5; O2SAT 90–95
[2025-01-25 06:41] LABS: Hematocrit 34.7 % (42.0-52.0); Hemoglobin 9.9 g/dL (14.0-18.0); Immature Granulocyte Percent A 0.4 % (0-0.5); Immature Platelet Fraction Pct 6.7 % (0.9-11.2); Lymphocytes Absolute Auto 1.49 K/mm3 (0.9-3.2); Mean Corpuscular HGB Conc 28.5 g/dl (32-36); Mean Corpuscular Hemoglobin 22.7 pg (26-34); Mean Corpuscular Volume 79.6 fl (80-100); Nucleated Red Blood Cells Absolute Auto 0.000 K/mm3 (0.0-0.012); Nucleated Red Blood Cells Perc 0.0 % (0.0-0.2); Platelet Count Result 84 k/mm3 (150-375); Red Blood Count 4.36 M/mm3 (4.6-6.20); White Blood Count 5.1 K/mm3 (4.5-10.0)
[2025-01-25 07:06] LABS: Iron 31 ug/dL (49-181)
[2025-01-25 07:08] LABS: Anion Gap 5 mmol/L (4-12); Blood Urea Nitrogen 10 mg/dL (9-20); Calcium 8.5 mg/dL (8.4-10.2); Carbon Dioxide 28 mmol/L (22-30); Chloride 105 mmol/L (98-107); Estimated CRCL calculation 112 ml/min; Estimated Glomerular Filt Rate > 60; Glucose 86 mg/dL (65-110); Potassium 3.3 mmol/L (3.4-5.0); Sodium 138 mmol/L (137-145)
[2025-01-25 07:10] LABS: Hypochromasia 1+; Polychromasia Occasional
[2025-01-25 07:11] LABS: Anisocytosis 1+; Ovalocytes 1+; Schistocytes None Seen
[2025-01-25 07:15] LABS: Percent Iron Saturation 9 % (20-50)
[2025-01-25 07:57] LABS: Thyroid Stimulating Hormone Reflex 2.100 uIU/mL (0.465-4.68)
[2025-01-25 08:01] LABS: Ferritin 14.10 ng/mL (11.1-264)
[2025-01-25 08:24] LABS: Vitamin B12 842.0 pg/mL (239-931)
[2025-01-25] MEDS: TRIAMTERENE 37.5 MG/HCTZ 25 MG (MAXZIDE) TABLET 1 TAB PO (08:29)
[2025-01-25] MEDS: ATORVASTATIN 40 MG TABLET PO (08:29)
[2025-01-25] MEDS: APIXABAN 5 MG TABLET PO ×2 (08:29→20:43)
[2025-01-25] MEDS: PANTOPRAZOLE 40 MG TABLET PO (08:29)
[2025-01-25] MEDS: guaiFENesin 12 HR 600 MG TABCR 1200 MG PO ×2 (08:30→20:42)
[2025-01-25] MEDS: cefTRIAXone 1 GM in SODIUM CHLORIDE 0.9% IV 50 ML 100 ML IVPB (08:30)
[2025-01-25] MEDS: IRBESARTAN 150 MG TABLET 300 MG PO (08:30)
[2025-01-25] MEDS: IPRATROPIUM 0.5 MG/ALBUTEROL SULFATE 2.5 MG AMPUL.NEB 3 ML INHALATION ×3 (08:30→21:34)
--- NOTE | 2025-01-25 11:07 | P.PNIM_ITS ---
Progress Note: A&P Assessment and Plan (1) Pulmonary edema: Code(s): J81.1 - Chronic pulmonary edema Status: Acute Assessment and Plan: With elevated BNP, and lower extremity swelling Cardiology consulted IV Lasix x1 Echocardiogram pending (2) Pneumonia: Code(s): J18.9 - Pneumonia, unspecified organism Status: Acute Assessment and Plan: IV Rocephin and azithromycin Blood cultures pending Galilea Lee Incentive spirometer (3) Pleural effusion: Code(s): J90 - Pleural effusion, not elsewhere classified Status: Acute Assessment and Plan: Repeat x-ray in the morning Will try to manage diuretics (4) Acute hypoxic respiratory failure: Code(s): J96.01 - Acute respiratory failure with hypoxia Status: Acute Assessment and Plan: Patient was found to have a pulse ox in the 80s at urgent Secondary to above Wean oxygen stable (5) Anemia: Code(s): D64.9 - Anemia, unspecified Status: Acute Assessment and Plan: Anemia workup (6) Diabetes: Code(s): E11.9 - Type 2 diabetes mellitus without complications Status: Acute Assessment and Plan: Diabetic diet Accu-Cheks a.cKarissa HS SSI Hold home anti-hyperglycemic medications (7) Thyroid nodule: Code(s): E04.1 - Nontoxic single thyroid nodule Status: Acute Assessment and Plan: There is a 5 cm left thyroid nodule. TSH pending If abnormal recommending inpatient thyroid ultrasound tsh- 2.100 (8) Liver lesion: Code(s): K76.9 - Liver disease, unspecified Status: Acute Assessment and Plan: Indeterminate 1.9 cm low-density lesion in the left lobe of the liver. CTA abdomen pelvis tomorrow as patient is already received contrast for today Patient states he is willing had CTA however he is unsure of a oncology consult at this time as he had a bad experience with his 's oncologist (9) Renal cyst: Code(s): N28.1 - Cyst of kidney, acquired Status: Acute Assessment and Plan: There is a 6.7 cm cystic structure in the left upper abdomen which may represent an exophytic left renal cyst. CTA abdomen pelvis pending (10) Lymph node enlargement: Code(s): R59.9 - Enlarged lymph nodes, unspecified Status: Acute Assessment and Plan: Enlarged mediastinal and hilar lymph nodes. In addition, there is an enlarged 2.1 cm right supraclavicular lymph node. Differential includes inflammatory/infectious process. However, a malignant process is not excluded. A follow-up chest CT in 2-4 weeks following treatment is recommended for further assessment. (11) Afib: Code(s): I48.91 - Unspecified atrial fibrillation Status: Acute Assessment and Plan: Continue Eliquis, Avapro and carvedilol, (12) Hypertension: Code(s): I10 - Essential (primary) hypertension Status: Acute Assessment and Plan: Continue Triamterene and amlodipine Time Spent With Patient Time with patient: 25 - 35 minutes Subjective Date/time seen: 01/25/25 11:07 Interval history: 79-year-old male past medical history prostate cancer, hypertension, diabetes, AFib presents the hospital with shortness of breath. He states that this has been going on for a few weeks progressively getting worse. Patient states that he has been cleaning up the basement due to his passing recently. He states that there is black mold in the basement that he was trying to fix a spent several days on there. He states that after that he started having respiratory complaints. Patient states that his recently passed July due to breast cancer with metastases to the brain. 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 He has complained of intermittent leg swell after the loss of his with abdominal girth increasing. Lab work in the ED shows hemoglobin of 10.4, platelets of 93, ABG within normal limits, glucose 160, proBNP 1030, influenza A/B, RSV, COVID negative. Chest x- ray shows bilateral or else face disease most likely edema versus pneumonia And cardiomegaly. Chest CTA shows no pulmonary embolism however there is moderate size patchy and ground-glass opacities scattered throughout both lungs edema versus pneumonia. There are several other incidental findings. 01/25 pt is seen and examined. He is still on oxygen, still gets sob with activity. Review of Systems Review of Systems: 12 systems were reviewed and are negativ e except for as per HPI. Exam Narrative: General: Mild distress, tachypneic HEENT: normocephalic, atraumatic. Mucous membranes moist. EOMI, PERRLA, bilateral sclera anicteric, no conjunctival injection. Neck supple without JVD, lymphadenopathy, or bruit. Respiratory: clear/diminished to ascultation bilaterally. No rales/rhonic/wheezes. Cardiovascular: Regular rate and rhythm, normal S1-S2 upon ascultation. No murmurs, rubs, or clicks. PMI is nondisplaced, capillary refill less than 3 second. Abdomen: Obese, Soft, round, no pulsatile masses, nondistended and nontender. No rebound, no guarding. No CVA tenderness, no hepatosplenomegaly. Bowel sounds present to all four quadrants. No high pitch or tinkling sounds, resonant to percussion. Extremities: No cyanosis, clubbing, Pulses are palpable 2/2. Active ROM to all four extremities. 2+ edema Neuro: Alert and orientated x 4. PERRLA. Cranial nerves 2-12 intact without fo hugh deficit. Skin: Warm, dry, and intact, without rash, erythema, or lesion. Psych: pleasant, cooperative, normal speech, normal affect, no hallucinations, no dysarthia Objective Data Vital Signs Vital Signs: Vital Signs - 24 hr 01/24/25 12:01 01/24/25 12:03 01/24/25 12:17 Temperature Pulse Rate 73 71 72 Respiratory Rate 15 25 H 15 Blood Pressure 123/79 123/79 91/62 L Pulse Oximetry 99 94 90 Oxygen Delivery Oxygen Flow Rate 01/24/25 12:31 01/24/25 12:46 01/24/25 13:59 Temperature Pulse Rate 78 69 76 Respiratory Rate 12 16 17 Blood Pressure 92/74 L 126/72 126/94 H Pulse Oximetry 96 96 97 Oxygen Delivery Oxygen Flow Rate 01/24/25 14:10 01/24/25 14:10 01/24/25 20:32 Temperature 97.1 F L Pulse Rate 67 80 Respiratory Rate 17 18 Blood Pressure 150/42 H Pulse Oximetry 95 96 Oxygen Delivery Nasal Cannula Oxygen Flow Rate 4 01/24/25 20:37 01/24/25 20:40 01/24/25 20:46 Temperature 97.8 F Pulse Rate 82 87 Respiratory Rate 18 18 Blood Pressure 110/86 Pulse Oximetry 96 98 Oxygen Delivery Nasal Cannula Oxygen Flow Rate 4 01/24/25 21:00 01/25/25 00:00 01/25/25 02:18 Temperature 97.6 F Pulse Rate 74 75 83 Respiratory Rate 18 Blood Pressure 110/62 Pulse Oximetry 93 Oxygen Delivery Oxygen Flow Rate 01/25/25 04:00 01/25/25 08:36 01/25/25 08:38 Temperature 96.8 F L Pulse Rate 85 87 Respiratory Rate 20 18 Blood Pressure 124/76 Pulse Oximetry 95 90 Oxygen Delivery Nasal Cannula Oxygen Flow Rate 3 01/25/25 08:41 Temperature Pulse Rate 90 Respiratory Rate 18 Blood Pressure Pulse Oximetry Oxygen Delivery Oxygen Flow Rate Intake/Output Intake/Output: Intake & Output 01/22/25 01/23/25 01/24/25 01/25/25 23:59 23:59 23:59 23:59 Intake Total 890 240 Balance 890 240 Meds/Results Medications: Active Medications Generic Name Dose Route Start Last Admin Trade Name Delfino PRN Reason Stop Dose Admin Acetaminophen 650 mg 01/24/25 14:31 Acetaminophen 325 Mg Tablet PO Q4H PRN Mild Pain (1-3) or Fever Albuterol/Ipratropium 3 ml 01/24/25 20:00 01/25/25 08:35 Ipratropium 0.5 Mg/Albuterol Sulfate 2.5 Mg Ampul.Neb 3 Ml INHALATION Not Given Q6HRT DEZ Amlodipine Besylate 10 mg 01/25/25 09:00 01/25/25 08:30 Amlodipine Besylate 10 Mg Tablet PO 10 mg DAILY DEZ Administration Apixaban 5 mg 01/24/25 21:00 01/25/25 08:29 Apixaban 5 Mg Tablet PO 5 mg Q12HR DEZ Administration Atorvastatin Calcium 40 mg 01/25/25 09:00 01/25/25 08:29 Atorvastatin 40 Mg Tablet PO 40 mg DAILY DEZ Administration Carvedilol 25 mg 01/24/25 21:00 01/25/25 08:29 Carvedilol 25 Mg Tablet PO 25 mg Q12HR DEZ Administration Dextrose 12.5 gm 01/24/25 14:34 Dextrose 50% 25 Gm/50 Ml Syringe IV PUSH PRN PRN Hypoglycemia Protocol Docusate Sodium 100 mg 01/24/25 14:31 Docusate Sodium 100 Mg Capsule PO BID PRN Constipation Glucagon 1 mg 01/24/25 14:34 Glucagon For Inj 1 Mg Vial IM PRN PRN Hypoglycemia Protocol Glucose 15 gm 01/24/25 14:34 Glucose Oral Gel 15 Gm Of Glucse In 37.5 Gm Tube PO PRN PRN Hypoglycemia Protocol Guaifenesin 1,200 mg 01/24/25 21:00 01/25/25 08:30 Guaifenesin 12 Hr 600 Mg Tabcr PO 1,200 mg Q12HR DEZ Administration Ceftriaxone Sodium 1 gm/ 50 mls @ 100 mls/hr 01/25/25 09:00 01/25/25 08:30 Sodium Chloride IVPB 100 mls/hr QAM DEZ Administration Azithromycin 500 mg/ Sodium 250 mls @ 250 mls/hr 01/25/25 12:00 Chloride IVPB 01/28/25 12:59 Q24H DEZ Dextrose 1,000 mls @ 100 mls/hr 01/24/25 14:34 Dextrose 5% 1,000 Ml IVPB PRN PRN Hypoglycemia Protocol Insulin Aspart 2 - 5 units 01/24/25 17:00 01/25/25 08:28 Insulin Aspart (*Bkc) 100 Units/Ml SUB-Q Not Given TIDWM DEZ Protocol Insulin Aspart 1 - 2 units 01/24/25 21:00 01/24/25 23:35 Insulin Aspart (*Bkc) 100 Units/Ml SUB-Q Not Given HS DEZ Protocol Irbesartan 300 mg 01/25/25 09:00 01/25/25 08:30 Irbesartan 150 Mg Tablet PO 300 mg DAILY DEZ Administration Pantoprazole Sodium 40 mg 01/25/25 09:00 01/25/25 08:29 Pantoprazole 40 Mg Tablet PO 40 mg DAILY DEZ Administration Perflutren Lipid Microsphere 0 ml 01/24/25 14:29 Perflutren Lipid Microspheres 1.5 Ml Vial Diluted To 10 Ml Total Volume IV PUSH 01/27/25 14:30 ONCE PRN adequate visualization Protocol Triamterene/Hydrochlorothiazide 1 tab 01/25/25 09:00 01/25/25 08:29 Triamterene 37.5 Mg/Hctz 25 Mg (Maxzide) Tablet PO 1 tab DAILY DEZ Administration Radiology Results: ITS Impressions Chest X-Ray 01/24/25 09:17 Impression: 1: Bilateral airspace disease, most likely edema. Pneumonia less favored. 2: Cardiomegaly. Chest CTA 01/24/25 10:43 IMPRESSION: 1. No pulmonary embolism identified. 2. Moderate-sized patchy and groundglass opacities scattered throughout both lungs. Differential includes but is not limited to edema or pneumonia. Recommend follow-up to resolution. 3. Small right-sided pleural effusion. Tiny left-sided pleural effusion. 4. There is a 5 cm left thyroid nodule. A thyroid ultrasound is recommended. 5. Enlarged mediastinal and hilar lymph nodes. In addition, there is an enlarged 2.1 cm right supraclavicular lymph node. Differential includes inflammatory/infectious process. However, a malignant process is not excluded. A follow-up chest CT in 2-4 weeks following treatment is recommended for further assessment. 6. Indeterminate 1.9 cm low-density lesion in the left lobe of the liver. A liver mass CT is recommended. 7. Small amount of nonspecific fluid in the visualized upper abdomen. 8. There is a 6.7 cm cystic structure in the left upper abdomen which may represent an exophytic left renal cyst. Abdomen/Pelvis CTA 01/25/25 10:09 IMPRESSION: 1. There is a 1.9 cm cyst in the left lobe of the liver. No liver mass identified. 2. Bilateral renal cysts. 3. Small right-sided pleural effusion. Tiny left-sided pleural effusion. 4. Redemonstration of a moderate-sized patchy groundglass opacity scattered throughout the visualized mid and lower lungs similar to the CT study from 01/24/2025. 5. Small amount of nonspecific fat stranding and fluid about the liver. Small to moderate amount of fluid and a small amount of fat stranding in the pelvis. 6. Small to moderate amount of nonspecific anasarca and subcutaneous fat stranding in the abdomen and pelvis, greater on the right. Labs Labs: Laboratory Results - last 24 hr 01/24/25 01/24/25 01/24/25 11:22 16:41 19:42 WBC RBC Hgb Hct MCV MCH MCHC RDW Plt Count MPV Immature Gran % (Auto) Neut % (Auto) Lymph % (Auto) [place] % (Auto) Eos % (Auto) Baso % (Auto) Lymph # (Auto) [place] # (Auto) Eos # (Auto) Baso # (Auto) Abs Immat Gran (auto) Absolute Neuts (auto) Absolute Nucleated RBC Band Neutrophils % Nucleated RBC % Platelet Estimate % Immature Plt Fraction Polychromasia Hypochromasia Anisocytosis Ovalocytes Schistocytes Sodium Potassium Chloride Carbon Dioxide Anion Gap BUN Creatinine Estim Creat Clear Calc Estimated GFR Glucose POC Capillary Glucose 121 H 166 H Calcium Iron TIBC % Saturation Ferritin NT-Pro-B Natriuret Pep 1030 H Vitamin B12 Folate TSH (Reflex) 01/25/25 01/25/25 06:13 07:56 WBC 5.1 RBC 4.36 L Hgb 9.9 L Hct 34.7 L MCV 79.6 L MCH 22.7 L MCHC 28.5 L RDW 16.9 H Plt Count 84 L MPV 10.8 H Immature Gran % (Auto) 0.4 Neut % (Auto) 60.0 Lymph % (Auto) 29.2 Stafford % (Auto) 8.6 H Eos % (Auto) 1.4 Baso % (Auto) 0.4 Lymph # (Auto) 1.49 Stafford # (Auto) 0.4 Eos # (Auto) 0.1 Baso # (Auto) 0.0 Abs Immat Gran (auto) 0.02 Absolute Neuts (auto) 3.1 Absolute Nucleated RBC 0.000 Band Neutrophils % Not Reportable Nucleated RBC % 0.0 Platelet Estimate Decreased % Immature Plt Fraction 6.7 Polychromasia Occasional Hypochromasia 1+ Anisocytosis 1+ Ovalocytes 1+ Schistocytes None seen Sodium 138 Potassium 3.3 L Chloride 105 Carbon Dioxide 28 Anion Gap 5 BUN 10 D Creatinine 0.71 Estim Creat Clear Calc 112 Estimated GFR > 60 Glucose 86 POC Capillary Glucose 92 Calcium 8.5 Iron 31 L TIBC 338 % Saturation 9 L Ferritin 14.10 NT-Pro-B Natriuret Pep Vitamin B12 842.0 Folate 10.2 TSH (Reflex) 2.100 Quality VTE Prophylaxis VTE prophylaxis: mechanical ordered and pharmacologic ordered
[2025-01-25] MEDS: AZITHROMYCIN IV 500 MG in SODIUM CHLORIDE 0.9% IV 250 ML IVPB (11:45)
[2025-01-26] VITALS (15 sets, daily range): BP systolic 101–119; BP diastolic 56–78; PULSE 72–88; RESP 18–22; TEMP 36.2–37.2; O2SAT 87–98
[2025-01-26] MEDS: IPRATROPIUM 0.5 MG/ALBUTEROL SULFATE 2.5 MG AMPUL.NEB 3 ML INHALATION ×4 (02:26→19:56)
[2025-01-26] MEDS: TRIAMTERENE 37.5 MG/HCTZ 25 MG (MAXZIDE) TABLET 1 TAB PO (08:35)
[2025-01-26] MEDS: PANTOPRAZOLE 40 MG TABLET PO (08:35)
[2025-01-26] MEDS: ATORVASTATIN 40 MG TABLET PO (08:35)
[2025-01-26] MEDS: IRBESARTAN 150 MG TABLET 300 MG PO (08:35)
[2025-01-26] MEDS: guaiFENesin 12 HR 600 MG TABCR 1200 MG PO ×2 (08:36→20:20)
[2025-01-26] MEDS: cefTRIAXone 1 GM in SODIUM CHLORIDE 0.9% IV 50 ML 100 ML IVPB (08:36)
[2025-01-26] MEDS: APIXABAN 5 MG TABLET PO ×2 (08:36→20:20)
[2025-01-26 08:44] LABS: Hematocrit 35.3 % (42.0-52.0); Hemoglobin 10.2 g/dL (14.0-18.0); Immature Granulocyte Percent A 0.4 % (0-0.5); Immature Platelet Fraction Pct 6.4 % (0.9-11.2); Lymphocytes Absolute Auto 1.16 K/mm3 (0.9-3.2); Mean Corpuscular HGB Conc 28.9 g/dl (32-36); Mean Corpuscular Hemoglobin 23.1 pg (26-34); Mean Corpuscular Volume 79.9 fl (80-100); Nucleated Red Blood Cells Absolute Auto 0.000 K/mm3 (0.0-0.012); Nucleated Red Blood Cells Perc 0.0 % (0.0-0.2); Platelet Count Result 87 k/mm3 (150-375); Red Blood Count 4.42 M/mm3 (4.6-6.20); White Blood Count 4.8 K/mm3 (4.5-10.0)
[2025-01-26 09:03] LABS: Alanine Aminotransferase 12 U/L (6-50); Albumin Level 3.5 g/dL (3.5-5.1); Alkaline Phosphatase 95 U/L (38-126); Anion Gap 5 mmol/L (4-12); Aspartate Amino Transferase 20 U/L (17-59); Bilirubin,Total 1.6 mg/dL (0.2-1.3); Blood Urea Nitrogen 11 mg/dL (9-20); Calcium 8.6 mg/dL (8.4-10.2); Carbon Dioxide 29 mmol/L (22-30); Chloride 102 mmol/L (98-107); Estimated CRCL calculation 116 ml/min; Estimated Glomerular Filt Rate > 60; Glucose 126 mg/dL (65-110); Potassium 3.4 mmol/L (3.4-5.0); Sodium 136 mmol/L (137-145); Total Protein 6.9 g/dL (6.3-8.2)
[2025-01-26 09:18] LABS: Anisocytosis 1+; Hypochromasia Occasional; Polychromasia Occasional; Schistocytes None Seen
--- NOTE | 2025-01-26 11:13 | P.PNIM_ITS ---
Progress Note: A&P Assessment and Plan (1) Pulmonary edema: Code(s): J81.1 - Chronic pulmonary edema Status: Acute Assessment and Plan: With elevated BNP, and lower extremity swelling Cardiology consulted IV Lasix x1 Echocardiogram pending will add furosemide IV (2) Pneumonia: Code(s): J18.9 - Pneumonia, unspecified organism Status: Acute Assessment and Plan: IV Rocephin and azithromycin Blood cultures pending Guaifenesin DuoNebs Incentive spirometer discussed with Ninoska Gordon, will add resp panel, legionella, mycoplasma IgM, pneumococcal antigen urine pt reports being exposed to black mold- discussed with pulm, dr gordon - agrees with treatment for now monitor closely (3) Pleural effusion: Code(s): J90 - Pleural effusion, not elsewhere classified Status: Acute Assessment and Plan: Repeat x-ray in the morning Will try to manage diuretics will resume diuretics (4) Acute hypoxic respiratory failure: Code(s): J96.01 - Acute respiratory failure with hypoxia Status: Acute Assessment and Plan: Patient was found to have a pulse ox in the 80s at urgent Secondary to above Wean oxygen stable (5) Anemia: Code(s): D64.9 - Anemia, unspecified Status: Acute Assessment and Plan: Anemia workup (6) Diabetes: Code(s): E11.9 - Type 2 diabetes mellitus without complications Status: Acute Assessment and Plan: Diabetic diet Accu-Cheks a.c. HS SSI Hold home anti-hyperglycemic medications (7) Thyroid nodule: Code(s): E04.1 - Nontoxic single thyroid nodule Status: Acute Assessment and Plan: There is a 5 cm left thyroid nodule. TSH pending If abnormal recommending inpatient thyroid ultrasound tsh- 2.100 (8) Liver lesion: Code(s): K76.9 - Liver disease, unspecified Status: Acute Assessment and Plan: Indeterminate 1.9 cm low-density lesion in the left lobe of the liver. CTA abdomen pelvis tomorrow as patient is already received contrast for today Patient states he is willing had CTA however he is unsure of a oncology consult at this time as he had a bad experience with his 's oncologist (9) Renal cyst: Code(s): N28.1 - Cyst of kidney, acquired Status: Acute Assessment and Plan: There is a 6.7 cm cystic structure in the left upper abdomen which may represent an exophytic left renal cyst. CTA abdomen pelvis pending (10) Lymph node enlargement: Code(s): R59.9 - Enlarged lymph nodes, unspecified Status: Acute Assessment and Plan: Enlarged mediastinal and hilar lymph nodes. In addition, there is an enlarged 2.1 cm right supraclavicular lymph node. Differential includes inflammatory/infectious process. However, a malignant process is not excluded. A follow-up chest CT in 2-4 weeks following treatment is recommended for further assessment. (11) Afib: Code(s): I48.91 - Unspecified atrial fibrillation Status: Acute Assessment and Plan: Continue Eliquis, Avapro and carvedilol, (12) Hypertension: Code(s): I10 - Essential (primary) hypertension Status: Acute Assessment and Plan: Continue Triamterene and amlodipine Subjective Date/time seen: 01/26/25 11:13 Interval history: 79-year-old male past medical history prostate cancer, hypertension, diabetes, AFib presents the hospital with shortness of breath. He states that this has been going on for a few weeks progressively getting worse. Patient states that he has been cleaning up the basement due to his passing recently. He states that there is black mold in the basement that he was trying to fix a spent several days on there. He states that after that he started having respiratory complaints. Patient states that his recently passed July due to breast cancer with metastases to the brain. 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 He has complained of intermittent leg swell after the loss of his with abdominal girth increasing. Lab work in the ED shows hemoglobin of 10.4, platelets of 93, ABG within normal limits, glucose 160, proBNP 1030, influenza A/B, RSV, COVID negative. Chest x- ray shows bilateral or else face disease most likely edema versus pneumonia And cardiomegaly. Chest CTA shows no pulmonary embolism however there is moderate size patchy and ground-glass opacities scattered throughout both lungs edema versus pneumonia. There are several other incidental findings. 01/25 pt is seen and examined. He is still on oxygen, still gets sob with activity. 01/26 Pt is seen this morning. Noted pt is on 4 l NC now, more sob. Review of Systems Review of Systems: 12 systems were reviewed and are negativ e except for as per HPI. Exam Narrative: General: Mild distress, tachypneic HEENT: normocephalic, atraumatic. Mucous membranes moist. EOMI, PERRLA, bilateral sclera anicteric, no conjunctival injection. Neck supple without JVD, lymphadenopathy, or bruit. Respiratory: clear/diminished to ascultation bilaterally. No rales/rhonic/wheezes. Cardiovascular: Regular rate and rhythm, normal S1-S2 upon ascultation. No murmurs, rubs, or clicks. PMI is nondisplaced, capillary refill less than 3 second. Abdomen: Obese, Soft, round, no pulsatile masses, nondistended and nontender. No rebound, no guarding. No CVA tenderness, no hepatosplenomegaly. Bowel sounds present to all four quadrants. No high pitch or tinkling sounds, resonant to percussion. Extremities: No cyanosis, clubbing, Pulses are palpable 2/2. Active ROM to all four extremities. 2+ edema Neuro: Alert and orientated x 4. PERRLA. Cranial nerves 2-12 intact without focal deficit. Skin: Warm, dry, and intact, without rash, erythema, or lesion. Psych: pleasant, cooperative, normal speech, normal affect, no hallucinations, no dysarthia Objective Data Vital Signs Vital Signs: Vital Signs - 24 hr 01/25/25 11:23 01/25/25 13:36 01/25/25 13:41 Temperature 97.6 F Pulse Rate 80 76 75 Respiratory Rate 20 18 18 Blood Pressure 90/55 L Pulse Oximetry 94 Oxygen Delivery Oxygen Flow Rate 01/25/25 15:44 01/25/25 20:00 01/25/25 20:41 Temperature 97.0 F L 97.7 F Pulse Rate 68 75 82 Respiratory Rate 20 20 16 Blood Pressure 113/83 125/77 142/88 H Pulse Oximetry 93 95 93 Oxygen Delivery Oxygen Flow Rate 01/25/25 20:43 01/25/25 21:35 01/25/25 21:39 Temperature Pulse Rate 83 74 78 Respiratory Rate 18 Blood Pressure Pulse Oximetry 94 Oxygen Delivery Nasal Cannula Oxygen Flow Rate 3 01/25/25 21:50 01/26/25 02:27 01/26/25 02:27 Temperature Pulse Rate 73 73 73 Respiratory Rate 18 18 Blood Pressure Pulse Oximetry 94 Oxygen Delivery Nasal Cannula Oxygen Flow Rate 3 01/26/25 02:36 01/26/25 05:51 01/26/25 06:00 Temperature 97.2 F L 97.2 F L Pulse Rate 72 74 74 Respiratory Rate 18 22 H 22 H Blood Pressure 118/78 118/78 Pulse Oximetry 90 90 Oxygen Delivery Oxygen Flow Rate 01/26/25 08:00 01/26/25 08:33 01/26/25 08:56 Temperature Pulse Rate 87 88 72 Respiratory Rate 20 18 Blood Pressure 101/56 L Pulse Oximetry 89 L Oxygen Delivery Oxygen Flow Rate Intake/Output Intake/Output: Intake & Output 01/23/25 01/24/25 01/25/25 01/26/25 23:59 23:59 23:59 23:59 Intake Total 890 1320 240 Balance 890 1320 240 Meds/Results Medications: Active Medications Generic Name Dose Route Start Last Admin Trade Name Freq PRN Reason Stop Dose Admin Acetaminophen 650 mg 01/24/25 14:31 Acetaminophen 325 Mg Tablet PO Q4H PRN Mild Pain (1-3) or Fever Albuterol/Ipratropium 3 ml 01/24/25 20:00 01/26/25 08:55 Ipratropium 0.5 Mg/Albuterol Sulfate 2.5 Mg Ampul.Neb 3 Ml INHALATION 3 ml Q6HRT DEZ Administration Amlodipine Besylate 10 mg 01/25/25 09:00 01/26/25 08:36 Amlodipine Besylate 10 Mg Tablet PO 10 mg DAILY DEZ Administration Apixaban 5 mg 01/24/25 21:00 01/26/25 08:36 Apixaban 5 Mg Tablet PO 5 mg Q12HR DEZ Administration Atorvastatin Calcium 40 mg 01/25/25 09:00 01/26/25 08:35 Atorvastatin 40 Mg Tablet PO 40 mg DAILY DEZ Administration Carvedilol 25 mg 01/24/25 21:00 01/26/25 08:33 Carvedilol 25 Mg Tablet PO 25 mg Q12HR DEZ Administration Dextrose 12.5 gm 01/24/25 14:34 Dextrose 50% 25 Gm/50 Ml Syringe IV PUSH PRN PRN Hypoglycemia Protocol Docusate Sodium 100 mg 01/24/25 14:31 Docusate Sodium 100 Mg Capsule PO BID PRN Constipation Glucagon 1 mg 01/24/25 14:34 Glucagon For Inj 1 Mg Vial IM PRN PRN Hypoglycemia Protocol Glucose 15 gm 01/24/25 14:34 Glucose Oral Gel 15 Gm Of Glucse In 37.5 Gm Tube PO PRN PRN Hypoglycemia Protocol Guaifenesin 1,200 mg 01/24/25 21:00 01/26/25 08:36 Guaifenesin 12 Hr 600 Mg Tabcr PO 1,200 mg Q12HR DEZ Administration Ceftriaxone Sodium 1 gm/ 50 mls @ 100 mls/hr 01/25/25 09:00 01/26/25 08:36 Sodium Chloride IVPB 100 mls/hr QAM DEZ Administration Azithromycin 500 mg/ Sodium 250 mls @ 250 mls/hr 01/25/25 12:00 01/25/25 11:45 Chloride IVPB 01/28/25 12:59 250 mls/hr Q24H DEZ Administration Dextrose 1,000 mls @ 100 mls/hr 01/24/25 14:34 Dextrose 5% 1,000 Ml IVPB PRN PRN Hypoglycemia Protocol Insulin Aspart 2 - 5 units 01/24/25 17:00 01/26/25 08:41 Insulin Aspart (*Bkc) 100 Units/Ml SUB-Q Not Given TIDWM DEZ Protocol Insulin Aspart 1 - 2 units 01/24/25 21:00 01/25/25 21:58 Insulin Aspart (*Bkc) 100 Units/Ml SUB-Q Not Given HS DEZ Protocol Irbesartan 300 mg 01/25/25 09:00 01/26/25 08:35 Irbesartan 150 Mg Tablet PO 300 mg DAILY DEZ Administration Pantoprazole Sodium 40 mg 01/25/25 09:00 01/26/25 08:35 Pantoprazole 40 Mg Tablet PO 40 mg DAILY DEZ Administration Perflutren Lipid Microsphere 0 ml 01/24/25 14:29 Perflutren Lipid Microspheres 1.5 Ml Vial Diluted To 10 Ml Total Volume IV PUSH 01/27/25 14:30 ONCE PRN adequate visualization Protocol Triamterene/Hydrochlorothiazide 1 tab 01/25/25 09:00 01/26/25 08:35 Triamterene 37.5 Mg/Hctz 25 Mg (Maxzide) Tablet PO 1 tab DAILY DEZ Administration Radiology Results: ITS Impressions Chest X-Ray 01/24/25 09:17 Impression: 1: Bilateral airspace disease, most likely edema. Pneumonia less favored. 2: Cardiomegaly. Chest CTA 01/24/25 10:43 IMPRESSION: 1. No pulmonary embolism identified. 2. Moderate-sized patchy and groundglass opacities scattered throughout both lungs. Differential includes but is not limited to edema or pneumonia. Recommend follow-up to resolution. 3. Small right-sided pleural effusion. Tiny left-sided pleural effusion. 4. There is a 5 cm left thyroid nodule. A thyroid ultrasound is recommended. 5. Enlarged mediastinal and hilar lymph nodes. In addition, there is an enlarged 2.1 cm right supraclavicular lymph node. Differential includes inflammatory/infectious process. However, a malignant process is not excluded. A follow-up chest CT in 2-4 weeks following treatment is recommended for further assessment. 6. Indeterminate 1.9 cm low-density lesion in the left lobe of the liver. A liver mass CT is recommended. 7. Small amount of nonspecific fluid in the visualized upper abdomen. 8. There is a 6.7 cm cystic structure in the left upper abdomen which may represent an exophytic left renal cyst. Abdomen/Pelvis CTA 01/25/25 10:09 IMPRESSION: 1. There is a 1.9 cm cyst in the left lobe of the liver. No liver mass identified. 2. Bilateral renal cysts. 3. Small right-sided pleural effusion. Tiny left-sided pleural effusion. 4. Redemonstration of a moderate-sized patchy groundglass opacity scattered throughout the visualized mid and lower lungs similar to the CT study from 01/24/2025. 5. Small amount of nonspecific fat stranding and fluid about the liver. Small to moderate amount of fluid and a small amount of fat stranding in the pelvis. 6. Small to moderate amount of nonspecific anasarca and subcutaneous fat stranding in the abdomen and pelvis, greater on the right. Labs Labs: Laboratory Results - last 24 hr 01/25/25 01/25/25 01/25/25 12:00 16:47 21:10 WBC RBC Hgb Hct MCV MCH MCHC RDW Plt Count MPV Immature Gran % (Auto) Neut % (Auto) Lymph % (Auto) [place] % (Auto) Eos % (Auto) Baso % (Auto) Lymph # (Auto) [place] # (Auto) Eos # (Auto) Baso # (Auto) Abs Immat Gran (auto) Absolute Neuts (auto) Absolute Nucleated RBC Band Neutrophils % Nucleated RBC % Platelet Estimate % Immature Plt Fraction Polychromasia Hypochromasia Anisocytosis Schistocytes Sodium Potassium Chloride Carbon Dioxide Anion Gap BUN Creatinine Estim Creat Clear Calc Estimated GFR Glucose POC Capillary Glucose 103 102 118 H Calcium Total Bilirubin AST ALT Alkaline Phosphatase Total Protein Albumin 01/26/25 01/26/25 07:26 08:20 WBC 4.8 RBC 4.42 L Hgb 10.2 L Hct 35.3 L MCV 79.9 L MCH 23.1 L MCHC 28.9 L RDW 17.0 H Plt Count 87 L MPV 10.7 H Immature Gran % (Auto) 0.4 Neut % (Auto) 64.5 Lymph % (Auto) 24.4 [place] % (Auto) 8.0 Eos % (Auto) 2.3 Baso % (Auto) 0.4 Lymph # (Auto) 1.16 [place] # (Auto) 0.4 Eos # (Auto) 0.1 Baso # (Auto) 0.0 Abs Immat Gran (auto) 0.02 Absolute Neuts (auto) 3.1 Absolute Nucleated RBC 0.000 Band Neutrophils % Not Reportable Nucleated RBC % 0.0 Platelet Estimate Decreased % Immature Plt Fraction 6.4 Polychromasia Occasional Hypochromasia Occasional Anisocytosis 1+ Schistocytes None seen Sodium 136 L Potassium 3.4 Chloride 102 Carbon Dioxide 29 Anion Gap 5 BUN 11 Creatinine 0.68 L Estim Creat Clear Calc 116 Estimated GFR > 60 Glucose 126 H POC Capillary Glucose 99 Calcium 8.6 Total Bilirubin 1.6 H AST 20 ALT 12 Alkaline Phosphatase 95 Total Protein 6.9 Albumin 3.5 Quality VTE Prophylaxis VTE prophylaxis: mechanical ordered and pharmacologic ordered
[2025-01-26] MEDS: FUROSEMIDE INJ 40 MG/4 ML VIAL IV PUSH ×2 (11:57→16:49)
[2025-01-26] MEDS: AZITHROMYCIN IV 500 MG in SODIUM CHLORIDE 0.9% IV 250 ML IVPB (11:57)
[2025-01-27] VITALS (18 sets, daily range): BP systolic 104–126; BP diastolic 58–78; PULSE 69–95; RESP 18–20; TEMP 36.1–36.8; O2SAT 91–100
[2025-01-27] MEDS: IPRATROPIUM 0.5 MG/ALBUTEROL SULFATE 2.5 MG AMPUL.NEB 3 ML INHALATION ×4 (02:07→19:49)
[2025-01-27] MEDS: FUROSEMIDE INJ 40 MG/4 ML VIAL IV PUSH ×2 (09:37→18:41)
[2025-01-27] MEDS: IRBESARTAN 150 MG TABLET 300 MG PO (09:37)
[2025-01-27] MEDS: TRIAMTERENE 37.5 MG/HCTZ 25 MG (MAXZIDE) TABLET 1 TAB PO (09:37)
[2025-01-27] MEDS: guaiFENesin 12 HR 600 MG TABCR 1200 MG PO ×2 (09:37→21:53)
[2025-01-27] MEDS: ATORVASTATIN 40 MG TABLET PO (09:37)
[2025-01-27] MEDS: APIXABAN 5 MG TABLET PO ×2 (09:37→21:54)
[2025-01-27] MEDS: PANTOPRAZOLE 40 MG TABLET PO (09:38)
[2025-01-27] MEDS: cefTRIAXone 1 GM in SODIUM CHLORIDE 0.9% IV 50 ML 100 ML IVPB (09:38)
[2025-01-27] MEDS: AZITHROMYCIN IV 500 MG in SODIUM CHLORIDE 0.9% IV 250 ML IVPB (12:50)
--- NOTE | 2025-01-27 15:25 | P.PNIM_ITS ---
Progress Note: A&P Assessment and Plan (1) Pulmonary edema: Code(s): J81.1 - Chronic pulmonary edema Status: Acute Assessment and Plan: With elevated BNP, and lower extremity swelling Cardiology consulted IV Lasix x1 Echocardiogram pending will add furosemide IV repeat chest xray (2) Pneumonia: Code(s): J18.9 - Pneumonia, unspecified organism Status: Acute Assessment and Plan: IV Rocephin and azithromycin Blood cultures pending Guaifencharity Lee Incentive spirometer discussed with Pulrock Gordon, will add resp panel, legionella, mycoplasma IgM, pneumococcal antigen urine pt reports being exposed to black mold- discussed with pulm, dr gordon - agrees with treatment for now monitor closely -continue antibiotics trend labs- ordered (3) Pleural effusion: Code(s): J90 - Pleural effusion, not elsewhere classified Status: Acute Assessment and Plan: Repeat x-ray in the morning Will try to manage diuretics will resume diuretics lasix bid repeat chest xray in am monitor cmp (4) Acute hypoxic respiratory failure: Code(s): J96.01 - Acute respiratory failure with hypoxia Status: Acute Assessment and Plan: Patient was found to have a pulse ox in the 80s at urgent Secondary to above Wean oxygen stable (5) Anemia: Code(s): D64.9 - Anemia, unspecified Status: Acute Assessment and Plan: Anemia workup will add iron supplements (6) Diabetes: Code(s): E11.9 - Type 2 diabetes mellitus without complications Status: Acute Assessment and Plan: Diabetic diet [facility] Hold home anti-hyperglycemic medications (7) Thyroid nodule: Code(s): E04.1 - Nontoxic single thyroid nodule Status: Acute Assessment and Plan: There is a 5 cm left thyroid nodule. TSH pending If abnormal recommending inpatient thyroid ultrasound tsh- 2.100 (8) Liver lesion: Code(s): K76.9 - Liver disease, unspecified Status: Acute Assessment and Plan: Indeterminate 1.9 cm low-density lesion in the left lobe of the liver. CTA abdomen pelvis tomorrow as patient is already received contrast for today Patient states he is willing had CTA however he is unsure of a oncology consult at this time as he had a bad experience with his 's oncologist (9) Renal cyst: Code(s): N28.1 - Cyst of kidney, acquired Status: Acute Assessment and Plan: There is a 6.7 cm cystic structure in the left upper abdomen which may represent an exophytic left renal cyst. CTA abdomen pelvis pending (10) Lymph node enlargement: Code(s): R59.9 - Enlarged lymph nodes, unspecified Status: Acute Assessment and Plan: Enlarged mediastinal and hilar lymph nodes. In addition, there is an enlarged 2.1 cm right supraclavicular lymph node. Differential includes inflammatory/infectious process. However, a malignant process is not excluded. A follow-up chest CT in 2-4 weeks following treatment is recommended for further assessment. (11) Afib: Code(s): I48.91 - Unspecified atrial fibrillation Status: Acute Assessment and Plan: Continue Eliquis, Avapro and carvedilol, (12) Hypertension: Code(s): I10 - Essential (primary) hypertension Status: Acute Assessment and Plan: Continue Triamterene and amlodipine Subjective Date/time seen: 01/27/25 15:25 Interval history: 79-year-old male past medical history prostate cancer, hypertension, diabetes, AFib presents the hospital with shortness of breath. He states that this has been going on for a few weeks progressively getting worse. Patient states that he has been cleaning up the basement due to his passing recently. He states that there is black mold in the basement that he was trying to fix a spent several days on there. He states that after that he started having respiratory complaints. Patient states that his recently passed July due to breast cancer with metastases to the brain. 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 He has complained of intermittent leg swell after the loss of his with abdominal girth increasing. Lab work in the ED shows hemoglobin of 10.4, platelets of 93, ABG within normal limits, glucose 160, proBNP 1030, influenza A/B, RSV, COVID negative. Chest x- ray shows bilateral or else face disease most likely edema versus pneumonia And cardiomegaly. Chest CTA shows no pulmonary embolism however there is moderate size patchy and ground-glass opacities scattered throughout both lungs edema versus pneumonia. There are several other incidental findings. 01/25 pt is seen and examined. He is still on oxygen, still gets sob with activity. 01/26 Pt is seen this morning. Noted pt is on 4 l NC now, more sob. 01/27 increased oxygen with activity- 6l but pt is satting 98% so will try to decrease it. home o2 eval prior to discharge. pt is very pleasant, calm, denies chst pain, reports still sob with activity especially. Review of Systems Review of Systems: 12 systems were reviewed and are negativ e except for as per HPI. Exam Narrative: General: Mild distress, tachypneic HEENT: normocephalic, atraumatic. Mucous membranes moist. EOMI, PERRLA, bilateral sclera anicteric, no conjunctival injection. Neck supple without JVD, lymphadenopathy, or bruit. Respiratory: clear/diminished to ascultation bilaterally. No rales/rhonic/wheezes. Cardiovascular: Regular rate and rhythm, normal S1-S2 upon ascultation. No murmurs, rubs, or clicks. PMI is nondisplaced, capillary refill less than 3 second. Abdomen: Obese, Soft, round, no pulsatile masses, nondistended and nontender. No rebound, no guarding. No CVA tenderness, no hepatosplenomegaly. Bowel sounds present to all four quadrants. No high pitch or tinkling sounds, resonant to percussion. Extremities: No cyanosis, clubbing, Pulses are palpable 2/2. Active ROM to all four extremities. 2+ edema Neuro: Alert and orientated x 4. PERRLA. Cranial nerves 2-12 intact without focal deficit. Skin: Warm, dry, and intact, without rash, erythema, or lesion. Psych: pleasant, cooperative, normal speech, normal affect, no hallucinations, no dysarthia Objective Data Vital Signs Vital Signs: Vital Signs - 24 hr 01/26/25 16:00 01/26/25 19:51 01/26/25 19:57 Temperature 97.5 F L 98.9 F Pulse Rate 88 84 72 Respiratory Rate 20 20 18 Blood Pressure 110/72 119/77 Pulse Oximetry 87 L 95 Oxygen Delivery Oxygen Flow Rate 01/26/25 19:59 01/26/25 20:08 01/27/25 00:00 Temperature 98.2 F Pulse Rate 76 71 Respiratory Rate 18 20 Blood Pressure 121/74 Pulse Oximetry 94 100 Oxygen Delivery Nasal Cannula Oxygen Flow Rate 4 01/27/25 02:05 01/27/25 02:14 01/27/25 04:07 Temperature 97.5 F L Pulse Rate 69 75 90 Respiratory Rate 18 18 20 Blood Pressure 104/63 Pulse Oximetry 92 Oxygen Delivery Oxygen Flow Rate 01/27/25 07:41 01/27/25 07:43 01/27/25 07:50 Temperature Pulse Rate 90 93 Respiratory Rate 18 18 Blood Pressure Pulse Oximetry 95 Oxygen Delivery Nasal Cannula Oxygen Flow Rate 6 01/27/25 08:00 01/27/25 09:37 01/27/25 12:00 Temperature 97.7 F 97.0 F L Pulse Rate 95 95 80 Respiratory Rate 20 20 Blood Pressure 126/58 L 122/76 Pulse Oximetry 96 98 Oxygen Delivery Oxygen Flow Rate 01/27/25 13:24 Temperature Pulse Rate 91 Respiratory Rate 18 Blood Pressure Pulse Oximetry Oxygen Delivery Oxygen Flow Rate Intake/Output Intake/Output: Intake & Output 01/24/25 01/25/25 01/26/25 01/27/25 23:59 23:59 23:59 23:59 Intake Total 890 1570 2120 800 Output Total 400 1500 Balance 890 1570 1720 -700 Meds/Results Medications: Active Medications Generic Name Dose Route Start Last Admin Trade Name Freq PRN Reason Stop Dose Admin Acetaminophen 650 mg 01/24/25 14:31 Acetaminophen 325 Mg Tablet PO Q4H PRN Mild Pain (1-3) or Fever Albuterol/Ipratropium 3 ml 01/24/25 20:00 01/27/25 13:18 Ipratropium 0.5 Mg/Albuterol Sulfate 2.5 Mg Ampul.Neb 3 Ml INHALATION 3 ml Q6HRT DEZ Administration Amlodipine Besylate 10 mg 01/25/25 09:00 01/27/25 09:37 Amlodipine Besylate 10 Mg Tablet PO 10 mg DAILY DEZ Administration Apixaban 5 mg 01/24/25 21:00 01/27/25 09:37 Apixaban 5 Mg Tablet PO 5 mg Q12HR DEZ Administration Atorvastatin Calcium 40 mg 01/25/25 09:00 01/27/25 09:37 Atorvastatin 40 Mg Tablet PO 40 mg DAILY DEZ Administration Carvedilol 25 mg 01/24/25 21:00 01/27/25 09:37 Carvedilol 25 Mg Tablet PO 25 mg Q12HR DEZ Administration Dextrose 12.5 gm 01/24/25 14:34 Dextrose 50% 25 Gm/50 Ml Syringe IV PUSH PRN PRN Hypoglycemia Protocol Docusate Sodium 100 mg 01/24/25 14:31 Docusate Sodium 100 Mg Capsule PO BID PRN Constipation Furosemide 40 mg 01/26/25 11:15 01/27/25 09:37 Furosemide Inj 40 Mg/4 Ml Vial IV PUSH 40 mg DAILY DEZ Administration Glucagon 1 mg 01/24/25 14:34 Glucagon For Inj 1 Mg Vial IM PRN PRN Hypoglycemia Protocol Glucose 15 gm 01/24/25 14:34 Glucose Oral Gel 15 Gm Of Glucse In 37.5 Gm Tube PO PRN PRN Hypoglycemia Protocol Guaifenesin 1,200 mg 01/24/25 21:00 01/27/25 09:37 Guaifenesin 12 Hr 600 Mg Tabcr PO 1,200 mg Q12HR DEZ Administration Ceftriaxone Sodium 1 gm/ 50 mls @ 100 mls/hr 01/25/25 09:00 01/27/25 09:38 Sodium Chloride IVPB 100 mls/hr QAM DEZ Administration Azithromycin 500 mg/ Sodium 250 mls @ 250 mls/hr 01/25/25 12:00 01/27/25 12:50 Chloride IVPB 01/28/25 12:59 250 mls/hr Q24H DEZ Administration Dextrose 1,000 mls @ 100 mls/hr 01/24/25 14:34 Dextrose 5% 1,000 Ml IVPB PRN PRN Hypoglycemia Protocol Insulin Aspart 2 - 5 units 01/24/25 17:00 01/27/25 12:45 Insulin Aspart (*Bkc) 100 Units/Ml SUB-Q Not Given TIDWM DEZ Protocol Insulin Aspart 1 - 2 units 01/24/25 21:00 01/26/25 20:23 Insulin Aspart (*Bkc) 100 Units/Ml SUB-Q Not Given HS DEZ Protocol Irbesartan 300 mg 01/25/25 09:00 01/27/25 09:37 Irbesartan 150 Mg Tablet PO 300 mg DAILY DEZ Administration Pantoprazole Sodium 40 mg 01/25/25 09:00 01/27/25 09:38 Pantoprazole 40 Mg Tablet PO 40 mg DAILY DEZ Administration Triamterene/Hydrochlorothiazide 1 tab 01/25/25 09:00 01/27/25 09:37 Triamterene 37.5 Mg/Hctz 25 Mg (Maxzide) Tablet PO 1 tab DAILY DEZ Administration Radiology Results: ITS Impressions Chest CTA 01/24/25 10:43 IMPRESSION: 1. No pulmonary embolism identified. 2. Moderate-sized patchy and groundglass opacities scattered throughout both lungs. Differential includes but is not limited to edema or pneumonia. Recommend follow-up to resolution. 3. Small right-sided pleural effusion. Tiny left-sided pleural effusion. 4. There is a 5 cm left thyroid nodule. A thyroid ultrasound is recommended. 5. Enlarged mediastinal and hilar lymph nodes. In addition, there is an enlarged 2.1 cm right supraclavicular lymph node. Differential includes inflammatory/infectious process. However, a malignant process is not excluded. A follow-up chest CT in 2-4 weeks following treatment is recommended for further assessment. 6. Indeterminate 1.9 cm low-density lesion in the left lobe of the liver. A liver mass CT is recommended. 7. Small amount of nonspecific fluid in the visualized upper abdomen. 8. There is a 6.7 cm cystic structure in the left upper abdomen which may represent an exophytic left renal cyst. Abdomen/Pelvis CTA 01/25/25 10:09 IMPRESSION: 1. There is a 1.9 cm cyst in the left lobe of the liver. No liver mass identified. 2. Bilateral renal cysts. 3. Small right-sided pleural effusion. Tiny left-sided pleural effusion. 4. Redemonstration of a moderate-sized patchy groundglass opacity scattered throughout the visualized mid and lower lungs similar to the CT study from 01/24/2025. 5. Small amount of nonspecific fat stranding and fluid about the liver. Small to moderate amount of fluid and a small amount of fat stranding in the pelvis. 6. Small to moderate amount of nonspecific anasarca and subcutaneous fat stranding in the abdomen and pelvis, greater on the right. Chest X-Ray 01/26/25 16:32 Impression: CHF. Superimposed probable pneumonia Labs Labs: Laboratory Results - last 24 hr 01/26/25 01/26/25 01/26/25 12:52 16:31 19:50 POC Capillary Glucose 103 164 H Legionella Source Cancelled Legionella Culture Cancelled Legionella Cult Status Cancelled 01/27/25 01/27/25 07:54 11:33 POC Capillary Glucose 130 H 148 H Legionella Source Legionella Culture Legionella Cult Status Quality VTE Prophylaxis VTE prophylaxis: mechanical ordered and pharmacologic ordered
[2025-01-28] VITALS (16 sets, daily range): BP systolic 100–135; BP diastolic 48–72; PULSE 69–93; RESP 16–20; TEMP 36.1–37.7; O2SAT 91–99
[2025-01-28] MEDS: IPRATROPIUM 0.5 MG/ALBUTEROL SULFATE 2.5 MG AMPUL.NEB 3 ML INHALATION ×3 (02:40→13:49)
[2025-01-28 05:57] LABS: Hematocrit 35.4 % (42.0-52.0); Hemoglobin 10.2 g/dL (14.0-18.0); Immature Platelet Fraction Pct 6.8 % (0.9-11.2); Mean Corpuscular HGB Conc 28.8 g/dl (32-36); Mean Corpuscular Hemoglobin 22.8 pg (26-34); Mean Corpuscular Volume 79.2 fl (80-100); Platelet Count Result 84 k/mm3 (150-375); Red Blood Count 4.47 M/mm3 (4.6-6.20); White Blood Count 4.6 K/mm3 (4.5-10.0)
[2025-01-28 06:23] LABS: Anion Gap 5 mmol/L (4-12); Blood Urea Nitrogen 10 mg/dL (9-20); Calcium 8.2 mg/dL (8.4-10.2); Carbon Dioxide 36 mmol/L (22-30); Chloride 93 mmol/L (98-107); Estimated CRCL calculation 110 ml/min; Estimated Glomerular Filt Rate > 60; Glucose 111 mg/dL (65-110); Potassium 2.9 mmol/L (3.4-5.0); Sodium 134 mmol/L (137-145)
[2025-01-28] MEDS: IRBESARTAN 150 MG TABLET 300 MG PO (09:01)
[2025-01-28] MEDS: guaiFENesin 12 HR 600 MG TABCR 1200 MG PO ×2 (09:01→20:32)
[2025-01-28] MEDS: TRIAMTERENE 37.5 MG/HCTZ 25 MG (MAXZIDE) TABLET 1 TAB PO (09:01)
[2025-01-28] MEDS: APIXABAN 5 MG TABLET PO ×2 (09:01→21:32)
[2025-01-28] MEDS: PANTOPRAZOLE 40 MG TABLET PO (09:02)
[2025-01-28] MEDS: ATORVASTATIN 40 MG TABLET PO (09:02)
[2025-01-28] MEDS: cefTRIAXone 1 GM in SODIUM CHLORIDE 0.9% IV 50 ML 100 ML IVPB (09:03)
[2025-01-28] MEDS: FUROSEMIDE INJ 40 MG/4 ML VIAL IV PUSH ×2 (09:03→17:12)
--- NOTE | 2025-01-28 11:51 | P.PNIM_ITS ---
Progress Note: A&P Assessment and Plan (1) Pulmonary edema: Code(s): J81.1 - Chronic pulmonary edema Status: Acute Assessment and Plan: With elevated BNP, and lower extremity swelling Cardiology consulted IV Lasix x1 Echocardiogram pending will add furosemide IV repeated chest xray 01/28- unremarkable (2) Pneumonia: Code(s): J18.9 - Pneumonia, unspecified organism Status: Acute Assessment and Plan: IV Rocephin and azithromycin Blood cultures pending Kendrickaiasia Lee Incentive spirometer discussed with Pulrock Gordon, will add resp panel, legionella, mycoplasma IgM, pneumococcal antigen urine pt reports being exposed to black mold- discussed with pulm, dr gordon - agrees with treatment for now monitor closely -continue antibiotics trend labs- ordered (3) Pleural effusion: Code(s): J90 - Pleural effusion, not elsewhere classified Status: Acute Assessment and Plan: Repeat x-ray in the morning Will try to manage diuretics will resume diuretics lasix bid repeat chest xray in am monitor cmp (4) Acute hypoxic respiratory failure: Code(s): J96.01 - Acute respiratory failure with hypoxia Status: Acute Assessment and Plan: Patient was found to have a pulse ox in the 80s at urgent Secondary to above Wean oxygen stable (5) Anemia: Code(s): D64.9 - Anemia, unspecified Status: Acute Assessment and Plan: Anemia workup will add iron supplements (6) Diabetes: Code(s): E11.9 - Type 2 diabetes mellitus without complications Status: Acute Assessment and Plan: Diabetic diet Accu-Cheks a.cKarissa [facility] Hold home anti-hyperglycemic medications (7) Thyroid nodule: Code(s): E04.1 - Nontoxic single thyroid nodule Status: Acute Assessment and Plan: There is a 5 cm left thyroid nodule. TSH pending If abnormal recommending inpatient thyroid ultrasound tsh- 2.100 (8) Liver lesion: Code(s): K76.9 - Liver disease, unspecified Status: Acute Assessment and Plan: Indeterminate 1.9 cm low-density lesion in the left lobe of the liver. CTA abdomen pelvis tomorrow as patient is already received contrast for today Patient states he is willing had CTA however he is unsure of a oncology consult at this time as he had a bad experience with his 's oncologist (9) Renal cyst: Code(s): N28.1 - Cyst of kidney, acquired Status: Acute Assessment and Plan: There is a 6.7 cm cystic structure in the left upper abdomen which may represent an exophytic left renal cyst. CTA abdomen pelvis pending (10) Lymph node enlargement: Code(s): R59.9 - Enlarged lymph nodes, unspecified Status: Acute Assessment and Plan: Enlarged mediastinal and hilar lymph nodes. In addition, there is an enlarged 2.1 cm right supraclavicular lymph node. Differential includes inflammatory/infectious process. However, a malignant process is not excluded. A follow-up chest CT in 2-4 weeks following treatment is recommended for further assessment. (11) Afib: Code(s): I48.91 - Unspecified atrial fibrillation Status: Acute Assessment and Plan: Continue Eliquis, Avapro and carvedilol, (12) Hypertension: Code(s): I10 - Essential (primary) hypertension Status: Acute Assessment and Plan: Continue Triamterene and amlodipine Time Spent With Patient Time with patient: 25 - 35 minutes Subjective Date/time seen: 01/28/25 11:51 Interval history: 79-year-old male past medical history prostate cancer, hypertension, diabetes, AFib presents the hospital with shortness of breath. He states that this has been going on for a few weeks progressively getting worse. Patient states that he has been cleaning up the basement due to his passing recently. He states that there is black mold in the basement that he was trying to fix a spent several days on there. He states that after that he started having respiratory complaints. Patient states that his recently passed July due to breast cancer with metastases to the brain. 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 He has complained of intermittent leg swell after the loss of his with abdominal girth increasing. Lab work in the ED shows hemoglobin of 10.4, platelets of 93, ABG within normal limits, glucose 160, proBNP 1030, influenza A/B, RSV, COVID negative. Chest x- ray shows bilateral or else face disease most likely edema versus pneumonia And cardiomegaly. Chest CTA shows no pulmonary embolism however there is moderate size patchy and ground-glass opacities scattered throughout both lungs edema versus pneumonia. There are several other incidental findings. 01/25 pt is seen and examined. He is still on oxygen, still gets sob with activity. 01/26 Pt is seen this morning. Noted pt is on 4 l NC now, more sob. 01/27 increased oxygen with activity- 6l but pt is satting 98% so will try to decrease it. home o2 eval prior to discharge. pt is very pleasant, calm, denies chest pain, reports still sob with activity especially. 01/28 doing better today, about 60% to his baseline. Able to decrease oxygen to 2l per NC. Able to cough easier. If stable overnight, anticipate discharge tomorrow. will need home oxygen eval. Review of Systems Review of Systems: 12 systems were reviewed and are negativ e except for as per HPI. Exam Narrative: General: Mild distress, tachypneic HEENT: normocephalic, atraumatic. Mucous membranes moist. EOMI, PERRLA, bilateral sclera anicteric, no conjunctival injection. Neck supple without JVD, lymphadenopathy, or bruit. Respiratory: clear/diminished to ascultation bilaterally. No rales/rhonic/wheezes. Cardiovascular: Regular rate and rhythm, normal S1-S2 upon ascultation. No murmurs, rubs, or clicks. PMI is nondisplaced, capillary refill less than 3 second. Abdomen: Obese, Soft, round, no pulsatile masses, nondistended and nontender. No rebound, no guarding. No CVA tenderness, no hepatosplenomegaly. Bowel sounds present to all four quadrants. No high pitch or tinkling sounds, resonant to percussion. Extremities: No cyanosis, clubbing, Pulses are palpable 2/2. Active ROM to all four extremities. 2+ edema Neuro: Alert and orientated x 4. PERRLA. Cranial nerves 2-12 intact without focal deficit. Skin: Warm, dry, and intact, without rash, erythema, or lesion. Psych: pleasant, cooperative, normal speech, normal affect, no hallucinations, no dysarthia Objective Data Vital Signs Vital Signs: Vital Signs - 24 hr 01/27/25 12:00 01/27/25 13:24 01/27/25 15:00 Temperature 97.0 F L Pulse Rate 80 91 Respiratory Rate 20 18 Blood Pressure 122/76 Pulse Oximetry 98 95 Oxygen Delivery Nasal Cannula Oxygen Flow Rate 4 01/27/25 16:00 01/27/25 19:49 01/27/25 19:55 Temperature 97.7 F Pulse Rate 88 87 90 Respiratory Rate 20 20 20 Blood Pressure 109/78 Pulse Oximetry 95 Oxygen Delivery Oxygen Flow Rate 01/27/25 19:55 01/27/25 20:00 01/27/25 21:54 Temperature 98.3 F Pulse Rate 85 95 Respiratory Rate 18 Blood Pressure 121/61 Pulse Oximetry 96 91 Oxygen Delivery Nasal Cannula Oxygen Flow Rate 4 01/27/25 21:58 01/28/25 00:00 01/28/25 02:41 Temperature 99.8 F H Pulse Rate 90 93 Respiratory Rate 16 20 Blood Pressure 104/48 L Pulse Oximetry 91 92 Oxygen Delivery Nasal Cannula Oxygen Flow Rate 4 01/28/25 02:47 01/28/25 04:00 01/28/25 08:00 Temperature 99.0 F 97.4 F L Pulse Rate 90 71 85 Respiratory Rate 20 18 18 Blood Pressure 106/62 128/64 Pulse Oximetry 99 96 Oxygen Delivery Oxygen Flow Rate 01/28/25 08:51 01/28/25 08:51 01/28/25 08:58 Temperature Pulse Rate 84 86 Respiratory Rate 20 20 Blood Pressure Pulse Oximetry 95 Oxygen Delivery Nasal Cannula Oxygen Flow Rate 4 01/28/25 09:01 01/28/25 09:18 01/28/25 11:24 Temperature Pulse Rate 84 Respiratory Rate Blood Pressure Pulse Oximetry 93 91 Oxygen Delivery Nasal Cannula Nasal Cannula Oxygen Flow Rate 2 2 Intake/Output Intake/Output: Intake & Output 01/25/25 01/26/25 01/27/25 01/28/25 23:59 23:59 23:59 23:59 Intake Total 1570 2120 1090 120 Output Total 400 2900 Balance 1570 1720 -1810 120 Meds/Results Medications: Active Medications Generic Name Dose Route Start Last Admin Trade Name Freq PRN Reason Stop Dose Admin Acetaminophen 650 mg 01/24/25 14:31 Acetaminophen 325 Mg Tablet PO Q4H PRN Mild Pain (1-3) or Fever Albuterol/Ipratropium 3 ml 01/24/25 20:00 01/28/25 08:50 Ipratropium 0.5 Mg/Albuterol Sulfate 2.5 Mg Ampul.Neb 3 Ml INHALATION 3 ml Q6HRT DEZ Administration Amlodipine Besylate 10 mg 01/25/25 09:00 01/28/25 09:01 Amlodipine Besylate 10 Mg Tablet PO 10 mg DAILY DEZ Administration Apixaban 5 mg 01/24/25 21:00 01/28/25 09:01 Apixaban 5 Mg Tablet PO 5 mg Q12HR DEZ Administration Atorvastatin Calcium 40 mg 01/25/25 09:00 01/28/25 09:02 Atorvastatin 40 Mg Tablet PO 40 mg DAILY DEZ Administration Carvedilol 25 mg 01/24/25 21:00 01/28/25 09:01 Carvedilol 25 Mg Tablet PO 25 mg Q12HR DZE Administration Dextrose 12.5 gm 01/24/25 14:34 Dextrose 50% 25 Gm/50 Ml Syringe IV PUSH PRN PRN Hypoglycemia Protocol Docusate Sodium 100 mg 01/24/25 14:31 Docusate Sodium 100 Mg Capsule PO BID PRN Constipation Furosemide 40 mg 01/27/25 17:00 01/28/25 09:03 Furosemide Inj 40 Mg/4 Ml Vial IV PUSH 40 mg BID DEZ Administration Glucagon 1 mg 01/24/25 14:34 Glucagon For Inj 1 Mg Vial IM PRN PRN Hypoglycemia Protocol Glucose 15 gm 01/24/25 14:34 Glucose Oral Gel 15 Gm Of Glucse In 37.5 Gm Tube PO PRN PRN Hypoglycemia Protocol Guaifenesin 1,200 mg 01/24/25 21:00 01/28/25 09:01 Guaifenesin 12 Hr 600 Mg Tabcr PO 1,200 mg Q12HR DEZ Administration Ceftriaxone Sodium 1 gm/ 50 mls @ 100 mls/hr 01/25/25 09:00 01/28/25 09:03 Sodium Chloride IVPB 100 mls/hr QAM DEZ Administration Azithromycin 500 mg/ Sodium 250 mls @ 250 mls/hr 01/25/25 12:00 01/27/25 12:50 Chloride IVPB 01/28/25 12:59 250 mls/hr Q24H DEZ Administration Dextrose 1,000 mls @ 100 mls/hr 01/24/25 14:34 Dextrose 5% 1,000 Ml IVPB PRN PRN Hypoglycemia Protocol Potassium Chloride 40 meq/ 520 mls @ 130 mls/hr 01/28/25 10:29 Sodium Chloride IVPB 01/28/25 14:28 ONCE ONE Insulin Aspart 2 - 5 units 01/24/25 17:00 01/28/25 09:22 Insulin Aspart (*Bkc) 100 Units/Ml SUB-Q Not Given TIDWM DEZ Protocol Insulin Aspart 1 - 2 units 01/24/25 21:00 01/27/25 21:55 Insulin Aspart (*Bkc) 100 Units/Ml SUB-Q Not Given HS DEZ Protocol Irbesartan 300 mg 01/25/25 09:00 01/28/25 09:01 Irbesartan 150 Mg Tablet PO 300 mg DAILY DEZ Administration Pantoprazole Sodium 40 mg 01/25/25 09:00 01/28/25 09:02 Pantoprazole 40 Mg Tablet PO 40 mg DAILY DEZ Administration Polysaccharide Iron Complex 150 mg 01/27/25 17:00 01/28/25 09:02 Polysaccharide Iron Complex 150 Mg Capsule PO 150 mg BIDWM DEZ Administration Triamterene/Hydrochlorothiazide 1 tab 01/25/25 09:00 01/28/25 09:01 Triamterene 37.5 Mg/Hctz 25 Mg (Maxzide) Tablet PO 1 tab DAILY DEZ Administration Radiology Results: ITS Impressions Chest CTA 01/24/25 10:43 IMPRESSION: 1. No pulmonary embolism identified. 2. Moderate-sized patchy and groundglass opacities scattered throughout both lungs. Differential includes but is not limited to edema or pneumonia. Recommend follow-up to resolution. 3. Small right-sided pleural effusion. Tiny left-sided pleural effusion. 4. There is a 5 cm left thyroid nodule. A thyroid ultrasound is recommended. 5. Enlarged mediastinal and hilar lymph nodes. In addition, there is an enlarged 2.1 cm right supraclavicular lymph node. Differential includes inflammatory/infectious process. However, a malignant process is not excluded. A follow-up chest CT in 2-4 weeks following treatment is recommended for further assessment. 6. Indeterminate 1.9 cm low-density lesion in the left lobe of the liver. A liver mass CT is recommended. 7. Small amount of nonspecific fluid in the visualized upper abdomen. 8. There is a 6.7 cm cystic structure in the left upper abdomen which may represent an exophytic left renal cyst. Abdomen/Pelvis CTA 01/25/25 10:09 IMPRESSION: 1. There is a 1.9 cm cyst in the left lobe of the liver. No liver mass identified. 2. Bilateral renal cysts. 3. Small right-sided pleural effusion. Tiny left-sided pleural effusion. 4. Redemonstration of a moderate-sized patchy groundglass opacity scattered throughout the visualized mid and lower lungs similar to the CT study from 01/24/2025. 5. Small amount of nonspecific fat stranding and fluid about the liver. Small to moderate amount of fluid and a small amount of fat stranding in the pelvis. 6. Small to moderate amount of nonspecific anasarca and subcutaneous fat stranding in the abdomen and pelvis, greater on the right. Chest X-Ray 01/28/25 10:24 Impression: 1: Stable mild edema. Labs Labs: Laboratory Results - last 24 hr 01/26/25 01/27/25 01/27/25 12:52 16:33 19:59 WBC RBC Hgb Hct MCV MCH MCHC RDW Plt Count MPV % Immature Plt Fraction Sodium Potassium Chloride Carbon Dioxide Anion Gap BUN Creatinine Estim Creat Clear Calc Estimated GFR Glucose POC Capillary Glucose 113 H 145 H Calcium Chlamy pneumoniae PCR Not detected Adenovirus (PCR) Not detected B. pertussis DNA (PCR) Not detected B.parapertussis DNA PCR Not detected Coronavirus OC43 (PCR) Not detected Coronavirus HKU1 (PCR) Not detected Coronavirus 229E (PCR) Not detected Coronavirus NL63 (PCR) Not detected Human Metapneumovir PCR Not detected Influenza A (H1) PCR Not detected Influ A () PCR Not detected Influenza A (H3) PCR Not detected Influenza Type A (PCR) Not detected Influenza Type B (PCR) Not detected M. pneumoniae (PCR) Not detected Parainfluenza 1 (PCR) Not detected Parainfluenza 2 (PCR) Not detected Parainfluenza 3 (PCR) Not detected Parainfluenza 4 (PCR) Not detected RSV (PCR) Not detected Entero/Rhino (PCR) Not detected SARS-CoV-2 (PCR) Not detected 01/28/25 01/28/25 01/28/25 05:30 07:30 11:15 WBC 4.6 RBC 4.47 L Hgb 10.2 L Hct 35.4 L MCV 79.2 L MCH 22.8 L MCHC 28.8 L RDW 16.6 H Plt Count 84 L MPV 10.7 H % Immature Plt Fraction 6.8 Sodium 134 L Potassium 2.9 L Chloride 93 L Carbon Dioxide 36 H Anion Gap 5 BUN 10 Creatinine 0.70 Estim Creat Clear Calc 110 Estimated GFR > 60 Glucose 111 H POC Capillary Glucose 124 H 135 H Calcium 8.2 L Chlamy pneumoniae PCR Adenovirus (PCR) B. pertussis DNA (PCR) B.parapertussis DNA PCR Coronavirus OC43 (PCR) Coronavirus HKU1 (PCR) Coronavirus 229E (PCR) Coronavirus NL63 (PCR) Human Metapneumovir PCR Influenza A (H1) PCR Influ A () PCR Influenza A (H3) PCR Influenza Type A (PCR) Influenza Type B (PCR) M. pneumoniae (PCR) Parainfluenza 1 (PCR) Parainfluenza 2 (PCR) Parainfluenza 3 (PCR) Parainfluenza 4 (PCR) RSV (PCR) Entero/Rhino (PCR) SARS-CoV-2 (PCR) Quality VTE Prophylaxis VTE prophylaxis: mechanical ordered and pharmacologic ordered
[2025-01-28] MEDS: POTASSIUM CHLORIDE INJ 40 MEQ in SODIUM CHLORIDE 0.9% IV 500 ML 130 MEQ IVPB (12:35)
[2025-01-28] MEDS: AZITHROMYCIN IV 500 MG in SODIUM CHLORIDE 0.9% IV 250 ML IVPB (14:36)
[2025-01-28] MEDS: DOCUSATE SODIUM 100 MG CAPSULE PO (17:34)
[2025-01-29] VITALS (19 sets, daily range): BP systolic 112–114; BP diastolic 62–74; PULSE 74–114; RESP 14–20; TEMP 35.9–36.6; O2SAT 84–100
[2025-01-29] MEDS: IPRATROPIUM 0.5 MG/ALBUTEROL SULFATE 2.5 MG AMPUL.NEB 3 ML INHALATION ×3 (02:23→13:48)
[2025-01-29 05:44] LABS: Hematocrit 35.8 % (42.0-52.0); Hemoglobin 10.3 g/dL (14.0-18.0); Immature Platelet Fraction Pct 5.8 % (0.9-11.2); Mean Corpuscular HGB Conc 28.8 g/dl (32-36); Mean Corpuscular Hemoglobin 22.5 pg (26-34); Mean Corpuscular Volume 78.2 fl (80-100); Platelet Count Result 81 k/mm3 (150-375); Red Blood Count 4.58 M/mm3 (4.6-6.20); White Blood Count 4.7 K/mm3 (4.5-10.0)
[2025-01-29 06:05] LABS: Anion Gap 3 mmol/L (4-12); Blood Urea Nitrogen 11 mg/dL (9-20); Calcium 8.6 mg/dL (8.4-10.2); Carbon Dioxide 38 mmol/L (22-30); Chloride 92 mmol/L (98-107); Estimated CRCL calculation 115 ml/min; Estimated Glomerular Filt Rate > 60; Glucose 114 mg/dL (65-110); Potassium 2.8 mmol/L (3.4-5.0); Sodium 133 mmol/L (137-145)
[2025-01-29] MEDS: POTASSIUM CHLORIDE 20 MEQ ER TABLET 40 MEQ PO (06:29)
[2025-01-29] MEDS: POTASSIUM CHLORIDE INJ 40 MEQ in SODIUM CHLORIDE 0.9% IV 500 ML 130 MEQ IVPB (06:35)
[2025-01-29 06:49] LABS: Magnesium 1.9 mg/dL (1.6-2.3)
[2025-01-29] MEDS: TRIAMTERENE 37.5 MG/HCTZ 25 MG (MAXZIDE) TABLET 1 TAB PO (09:25)
[2025-01-29] MEDS: IRBESARTAN 150 MG TABLET 300 MG PO (09:25)
[2025-01-29] MEDS: ATORVASTATIN 40 MG TABLET PO (09:25)
[2025-01-29] MEDS: FUROSEMIDE INJ 40 MG/4 ML VIAL IV PUSH (09:25)
[2025-01-29] MEDS: PANTOPRAZOLE 40 MG TABLET PO (09:25)
[2025-01-29] MEDS: APIXABAN 5 MG TABLET PO (09:25)
[2025-01-29] MEDS: guaiFENesin 12 HR 600 MG TABCR 1200 MG PO (09:25)
[2025-01-29] MEDS: cefTRIAXone 1 GM in SODIUM CHLORIDE 0.9% IV 50 ML 100 ML IVPB (09:26)
--- NOTE | 2025-01-29 14:36 | P.PNIM_ITS ---
Progress Note: A&P Assessment and Plan (1) Pulmonary edema: Code(s): J81.1 - Chronic pulmonary edema Status: Acute Assessment and Plan: With elevated BNP, and lower extremity swelling Cardiology consulted IV Lasix x1 Echocardiogram pending will add furosemide IV repeated chest xray 01/28- unremarkable doing a lot better-down to 1-2 l at rest of o2. (2) Pneumonia: Code(s): J18.9 - Pneumonia, unspecified organism Status: Acute Assessment and Plan: IV Rocephin and azithromycin Blood cultures pending Guaifenesin DuoNebs Incentive spirometer discussed with Pulm DR Gordon, will add resp panel, legionella, mycoplasma IgM, pneumococcal antigen urine pt reports being exposed to black mold- discussed with pulm, dr gordon - agrees with treatment for now monitor closely -continue antibiotics trend labs- ordered downgraded to PO antibiotics (3) Pleural effusion: Code(s): J90 - Pleural effusion, not elsewhere classified Status: Acute Assessment and Plan: Repeat x-ray in the morning Will try to manage diuretics will resume diuretics lasix bid repeat chest xray in am monitor cmp (4) Acute hypoxic respiratory failure: Code(s): J96.01 - Acute respiratory failure with hypoxia Status: Acute Assessment and Plan: Patient was found to have a pulse ox in the 80s at urgent Secondary to above Wean oxygen stable (5) Anemia: Code(s): D64.9 - Anemia, unspecified Status: Acute Assessment and Plan: Anemia workup will add iron supplements (6) Diabetes: Code(s): E11.9 - Type 2 diabetes mellitus without complications Status: Acute Assessment and Plan: Diabetic diet Accu-[facility] Hold home anti-hyperglycemic medications (7) Thyroid nodule: Code(s): E04.1 - Nontoxic single thyroid nodule Status: Acute Assessment and Plan: There is a 5 cm left thyroid nodule. TSH pending If abnormal recommending inpatient thyroid ultrasound tsh- 2.100 (8) Liver lesion: Code(s): K76.9 - Liver disease, unspecified Status: Acute Assessment and Plan: Indeterminate 1.9 cm low-density lesion in the left lobe of the liver. CTA abdomen pelvis tomorrow as patient is already received contrast for today Patient states he is willing had CTA however he is unsure of a oncology consult at this time as he had a bad experience with his 's oncologist (9) Renal cyst: Code(s): N28.1 - Cyst of kidney, acquired Status: Acute Assessment and Plan: There is a 6.7 cm cystic structure in the left upper abdomen which may represent an exophytic left renal cyst. CTA abdomen pelvis pending (10) Lymph node enlargement: Code(s): R59.9 - Enlarged lymph nodes, unspecified Status: Acute Assessment and Plan: Enlarged mediastinal and hilar lymph nodes. In addition, there is an enlarged 2.1 cm right supraclavicular lymph node. Differential includes inflammatory/infectious process. However, a malignant process is not excluded. A follow-up chest CT in 2-4 weeks following treatment is recommended for further assessment. (11) Afib: Code(s): I48.91 - Unspecified atrial fibrillation Status: Acute Assessment and Plan: Continue Eliquis, Avapro and carvedilol, (12) Hypertension: Code(s): I10 - Essential (primary) hypertension Status: Acute Assessment and Plan: Continue Triamterene and amlodipine Time Spent With Patient Time with patient: 25 - 35 minutes Subjective Date/time seen: 01/29/25 14:36 Interval history: 79-year-old male past medical history prostate cancer, hypertension, diabetes, AFib presents the hospital with shortness of breath. He states that this has been going on for a few weeks progressively getting worse. Patient states that he has been cleaning up the basement due to his passing recently. He states that there is black mold in the basement that he was trying to fix a spent several days on there. He states that after that he started having respiratory complaints. Patient states that his recently passed July due to breast cancer with metastases to the brain. 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 He has complained of intermittent leg swell after the loss of his with abdominal girth increasing. Lab work in the ED shows hemoglobin of 10.4, platelets of 93, ABG within normal limits, glucose 160, proBNP 1030, influenza A/B, RSV, COVID negative. Chest x- ray shows bilateral or else face disease most likely edema versus pneumonia And cardiomegaly. Chest CTA shows no pulmonary embolism however there is moderate size patchy and ground-glass opacities scattered throughout both lungs edema versus pneumonia. There are several other incidental findings. 01/25 pt is seen and examined. He is still on oxygen, still gets sob with activity. 01/26 Pt is seen this morning. Noted pt is on 4 l NC now, more sob. 01/27 increased oxygen with activity- 6l but pt is satting 98% so will try to decrease it. home o2 eval prior to discharge. pt is very pleasant, calm, denies chest pain, reports still sob with activity especially. 01/28 doing better today, about 60% to his baseline. Able to decrease oxygen to 2l per NC. Able to cough easier. If stable overnight, anticipate discharge tomorrow. will need home oxygen eval. 01/29 oxygen down to 1-2 l at rest, still sob with activity but better. K is low-replaced. will continue to try to wean off oxygen. if repeated K at normal range- will discharge today, if still low-then in am after another replacement dose. Pt is agreable. Review of Systems Review of Systems: 12 systems were reviewed and are negativ e except for as per HPI. Exam Narrative: General: Mild distress, tachypneic HEENT: normocephalic, atraumatic. Mucous membranes moist. EOMI, PERRLA, bilateral sclera anicteric, no conjunctival injection. Neck supple without JVD, lymphadenopathy, or bruit. Respiratory: clear/diminished to ascultation bilaterally. No rales/rhonic/wheezes. Cardiovascular: Regular rate and rhythm, normal S1-S2 upon ascultation. No murmurs, rubs, or clicks. PMI is nondisplaced, capillary refill less than 3 second. Abdomen: Obese, Soft, round, no pulsatile masses, nondistended and nontender. No rebound, no guarding. No CVA tenderness, no hepatosplenomegaly. Bowel sounds present to all four quadrants. No high pitch or tinkling sounds, resonant to percussion. Extremities: No cyanosis, clubbing, Pulses are palpable 2/2. Active ROM to all four extremities. 2+ edema Neuro: Alert and orientated x 4. PERRLA. Cranial nerves 2-12 intact without focal deficit. Skin: Warm, dry, and intact, without rash, erythema, or lesion. Psych: pleasant, cooperative, normal speech, normal affect, no hallucinations, no dysarthia Objective Data Vital Signs Vital Signs: Vital Signs - 24 hr 01/28/25 16:00 01/28/25 19:30 01/28/25 20:00 Temperature 97.2 F L 97.0 F L Pulse Rate 75 69 Respiratory Rate 18 16 Blood Pressure 135/72 111/55 L Pulse Oximetry 95 93 Oxygen Delivery Nasal Cannula Oxygen Flow Rate 01/28/25 20:31 01/29/25 00:00 01/29/25 02:23 Temperature 97.1 F L Pulse Rate 90 74 88 Respiratory Rate 14 18 Blood Pressure 113/66 Pulse Oximetry 95 Oxygen Delivery Oxygen Flow Rate 01/29/25 02:26 01/29/25 04:00 01/29/25 08:00 Temperature 97.9 F 96.6 F L Pulse Rate 88 80 85 Respiratory Rate 18 16 18 Blood Pressure 114/62 112/74 Pulse Oximetry 97 100 98 Oxygen Delivery Nasal Cannula Oxygen Flow Rate 2 01/29/25 08:19 01/29/25 08:19 01/29/25 08:27 Temperature Pulse Rate 86 78 Respiratory Rate 20 20 Blood Pressure Pulse Oximetry 96 Oxygen Delivery Nasal Cannula Oxygen Flow Rate 2 01/29/25 09:10 01/29/25 09:12 01/29/25 09:26 Temperature Pulse Rate 78 Respiratory Rate Blood Pressure Pulse Oximetry 85 L 91 Oxygen Delivery Room Air Nasal Cannula Oxygen Flow Rate 1 01/29/25 13:48 01/29/25 13:48 01/29/25 13:55 Temperature Pulse Rate 85 77 Respiratory Rate 20 20 Blood Pressure Pulse Oximetry 93 Oxygen Delivery Nasal Cannula Oxygen Flow Rate 1 Intake/Output Intake/Output: Intake & Output 01/26/25 01/27/25 01/28/25 01/29/25 23:59 23:59 23:59 23:59 Intake Total 2120 1340 510 420 Output Total 400 2900 300 Balance 1720 -1560 510 120 Meds/Results Medications: Active Medications Generic Name Dose Route Start Last Admin Trade Name Freq PRN Reason Stop Dose Admin Acetaminophen 650 mg 01/24/25 14:31 Acetaminophen 325 Mg Tablet PO Q4H PRN Mild Pain (1-3) or Fever Albuterol/Ipratropium 3 ml 01/24/25 20:00 01/29/25 13:48 Ipratropium 0.5 Mg/Albuterol Sulfate 2.5 Mg Ampul.Neb 3 Ml INHALATION 3 ml Q6HRT DEZ Administration Amlodipine Besylate 10 mg 01/25/25 09:00 01/29/25 09:25 Amlodipine Besylate 10 Mg Tablet PO 10 mg DAILY DEZ Administration Amoxicillin/Clavulanate Potassium 1 tablet 01/30/25 09:00 Amoxicillin/Clavulanate K 875-125 Mg Tab PO 02/02/25 21:01 Q12HR DEZ Apixaban 5 mg 01/24/25 21:00 01/29/25 09:25 Apixaban 5 Mg Tablet PO 5 mg Q12HR DEZ Administration Atorvastatin Calcium 40 mg 01/25/25 09:00 01/29/25 09:25 Atorvastatin 40 Mg Tablet PO 40 mg DAILY DEZ Administration Carvedilol 25 mg 01/24/25 21:00 01/29/25 09:26 Carvedilol 25 Mg Tablet PO 25 mg Q12HR DEZ Administration Dextrose 12.5 gm 01/24/25 14:34 Dextrose 50% 25 Gm/50 Ml Syringe IV PUSH PRN PRN Hypoglycemia Protocol Docusate Sodium 100 mg 01/24/25 14:31 01/28/25 17:34 Docusate Sodium 100 Mg Capsule PO 100 mg BID PRN Administration Constipation Glucagon 1 mg 01/24/25 14:34 Glucagon For Inj 1 Mg Vial IM PRN PRN Hypoglycemia Protocol Glucose 15 gm 01/24/25 14:34 Glucose Oral Gel 15 Gm Of Glucse In 37.5 Gm Tube PO PRN PRN Hypoglycemia Protocol Guaifenesin 1,200 mg 01/24/25 21:00 01/29/25 09:25 Guaifenesin 12 Hr 600 Mg Tabcr PO 1,200 mg Q12HR DEZ Administration Dextrose 1,000 mls @ 100 mls/hr 01/24/25 14:34 Dextrose 5% 1,000 Ml IVPB PRN PRN Hypoglycemia Protocol Insulin Aspart 2 - 5 units 01/24/25 17:00 01/29/25 12:00 Insulin Aspart (*Bkc) 100 Units/Ml SUB-Q Not Given TIDWM DEZ Protocol Insulin Aspart 1 - 2 units 01/24/25 21:00 01/28/25 21:32 Insulin Aspart (*Bkc) 100 Units/Ml SUB-Q Not Given HS [facility] Protocol Irbesartan 300 mg 01/25/25 09:00 01/29/25 09:25 Irbesartan 150 Mg Tablet PO 300 mg DAILY DEZ Administration Magnesium Oxide 200 mg 01/29/25 13:00 Magnesium Oxide 200 Mg Tablet PO Q12HR DEZ Pantoprazole Sodium 40 mg 01/25/25 09:00 01/29/25 09:25 Pantoprazole 40 Mg Tablet PO 40 mg DAILY DEZ Administration Polysaccharide Iron Complex 150 mg 01/27/25 17:00 01/29/25 09:25 Polysaccharide Iron Complex 150 Mg Capsule PO 150 mg BIDWM DEZ Administration Triamterene/Hydrochlorothiazide 1 tab 01/25/25 09:00 01/29/25 09:25 Triamterene 37.5 Mg/Hctz 25 Mg (Maxzide) Tablet PO 1 tab DAILY DEZ Administration Radiology Results: ITS Impressions Chest CTA 01/24/25 10:43 IMPRESSION: 1. No pulmonary embolism identified. 2. Moderate-sized patchy and groundglass opacities scattered throughout both lungs. Differential includes but is not limited to edema or pneumonia. Recommend follow-up to resolution. 3. Small right-sided pleural effusion. Tiny left-sided pleural effusion. 4. There is a 5 cm left thyroid nodule. A thyroid ultrasound is recommended. 5. Enlarged mediastinal and hilar lymph nodes. In addition, there is an enlarged 2.1 cm right supraclavicular lymph node. Differential includes inflammatory/infectious process. However, a malignant process is not excluded. A follow-up chest CT in 2-4 weeks following treatment is recommended for further assessment. 6. Indeterminate 1.9 cm low-density lesion in the left lobe of the liver. A liver mass CT is recommended. 7. Small amount of nonspecific fluid in the visualized upper abdomen. 8. There is a 6.7 cm cystic structure in the left upper abdomen which may represent an exophytic left renal cyst. Abdomen/Pelvis CTA 01/25/25 10:09 IMPRESSION: 1. There is a 1.9 cm cyst in the left lobe of the liver. No liver mass identified. 2. Bilateral renal cysts. 3. Small right-sided pleural effusion. Tiny left-sided pleural effusion. 4. Redemonstration of a moderate-sized patchy groundglass opacity scattered throughout the visualized mid and lower lungs similar to the CT study from 01/24/2025. 5. Small amount of nonspecific fat stranding and fluid about the liver. Small to moderate amount of fluid and a small amount of fat stranding in the pelvis. 6. Small to moderate amount of nonspecific anasarca and subcutaneous fat stranding in the abdomen and pelvis, greater on the right. Chest X-Ray 01/28/25 10:24 Impression: 1: Stable mild edema. Labs Labs: Laboratory Results - last 24 hr 01/28/25 01/28/25 01/29/25 16:49 19:53 05:26 WBC 4.7 RBC 4.58 L Hgb 10.3 L Hct 35.8 L MCV 78.2 L MCH 22.5 L MCHC 28.8 L RDW 16.7 H Plt Count 81 L MPV 10.1 % Immature Plt Fraction 5.8 Sodium 133 L Potassium 2.8 L* Chloride 92 L Carbon Dioxide 38 H Anion Gap 3 L BUN 11 Creatinine 0.64 L Estim Creat Clear Calc 115 Estimated GFR > 60 Glucose 114 H POC Capillary Glucose 114 H 159 H Calcium 8.6 Magnesium 1.9 01/29/25 01/29/25 01/29/25 05:26 07:37 11:33 WBC RBC Hgb Hct MCV MCH MCHC RDW Plt Count MPV % Immature Plt Fraction Sodium Potassium Chloride Carbon Dioxide Anion Gap BUN Creatinine Estim Creat Clear Calc Estimated GFR Glucose POC Capillary Glucose 116 H 173 H Calcium Magnesium Cancelled Quality VTE Prophylaxis VTE prophylaxis: mechanical ordered and pharmacologic ordered
[2025-01-29 15:16] LABS: Potassium 3.4 mmol/L (3.4-5.0)
--- NOTE | 2025-01-29 15:24 | P.DS_ITS ---
DS: Admitting Diagnosis Discharge Date 01/29 Admitting Diagnosis pneumonia DS: Discharge Diagnosis Discharge Diagnosis (1) Pulmonary edema: Code(s): J81.1 - Chronic pulmonary edema Status: Acute (2) Pneumonia: Code(s): J18.9 - Pneumonia, unspecified organism Status: Acute (3) Pleural effusion: Code(s): J90 - Pleural effusion, not elsewhere classified Status: Acute (4) Acute hypoxic respiratory failure: Code(s): J96.01 - Acute respiratory failure with hypoxia Status: Acute (5) Anemia: Code(s): D64.9 - Anemia, unspecified Status: Acute (6) Diabetes: Code(s): E11.9 - Type 2 diabetes mellitus without complications Status: Acute (7) Thyroid nodule: Code(s): E04.1 - Nontoxic single thyroid nodule Status: Acute (8) Liver lesion: Code(s): K76.9 - Liver disease, unspecified Status: Acute (9) Renal cyst: Code(s): N28.1 - Cyst of kidney, acquired Status: Acute (10) Lymph node enlargement: Code(s): R59.9 - Enlarged lymph nodes, unspecified Status: Acute (11) Afib: Code(s): I48.91 - Unspecified atrial fibrillation Status: Acute (12) Hypertension: Code(s): I10 - Essential (primary) hypertension Status: Acute DS: Summary Hospital Course Hospital Course: 79-year-old male past medical history prostate cancer, hypertension, diabetes, AFib presents the hospital with shortness of breath. He states that this has been going on for a few weeks progressively getting worse. Patient states that he has been cleaning up the basement due to his passing recently. He states that there is black mold in the basement that he was trying to fix a spent several days on there. He states that after that he started having respiratory complaints. Patient states that his recently passed July due to breast cancer with metastases to the brain. 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 He has complained of intermittent leg swell after the loss of his with abdominal girth increasing. Lab work in the ED shows hemoglobin of 10.4, platelets of 93, ABG within normal limits, glucose 160, proBNP 1030, influenza A/B, RSV, COVID negative. Chest x- ray shows bilateral or else face disease most likely edema versus pneumonia And cardiomegaly. Chest CTA shows no pulmonary embolism however there is moderate size patchy and ground-glass opacities scattered throughout both lungs edema versus pneumonia. There are several other incidental findings. Pt was on 4-6 l per NC and we were able to slowly titrate it down to 1-2l. He is will have home o2 eval. Pulm was consulted for black mold exposure and no acute interventions were needed. Pt was on IV rocephin and azithromycin and downgraded to PO Augmentin. needs 8 more total doses He was on IV lasix 40 mg BID for pulm edema- significantly improved. K dropped- replaced and repeated- it is 3.4 pt really wanted to go home. Will send K for few more doses to ensure stable- repeat labs in few days. # Thyroid nodule There is a 5 cm left thyroid nodule. TSH normal. Follow up with pcp as an outpt. # Liver lesion: Indeterminate 1.9 cm low-density lesion in the left lobe of the liver. CTA abdomen pelvis tomorrow as patient is already received contrast for today Patient states he is willing had CTA however he is unsure of a oncology consult at this time as he had a bad experience with his 's oncologist Status at Discharge Functional status at discharge: independent ambulation Overall status at discharge: patient is progressing back to baseline Time Spent with Patient Time attestation: Total time spent providing and/or coordinating discharge services: Time spent: Greater than 30 minutes Exam Narrative: General: calm and comfortable HEENT: normocephalic, atraumatic. Mucous membranes moist. EOMI, PERRLA, bilateral sclera anicteric, no conjunctival injection. Neck supple without JVD, lymphadenopathy, or bruit. Respiratory: clear/diminished to ascultation bilaterally. No rales/rhonic/wheezes. Cardiovascular: Regular rate and rhythm, normal S1-S2 upon ascultation. No murmurs, rubs, or clicks. PMI is nondisplaced, capillary refill less than 3 second. Abdomen: Obese, Soft, round, no pulsatile masses, nondistended and nontender. No rebound, no guarding. No CVA tenderness, no hepatosplenomegaly. Bowel sounds present to all four quadrants. No high pitch or tinkling sounds, resonant to percussion. Extremities: No cyanosis, clubbing, Pulses are palpable 2/2. Active ROM to all four extremities. 2+ edema Neuro: Alert and orientated x 4. PERRLA. Cranial nerves 2-12 intact without focal deficit. Skin: Warm, dry, and intact, without rash, erythema, or lesion. Psych: pleasant, cooperative, normal speech, normal affect, no hallucinations, no dysarthia Const: General: comfortable DS: Data Data Completed and Pending Labs on day of discharge: Labs from last 24 hours 01/29/25 01/29/25 01/29/25 15:03 11:33 07:37 WBC RBC Hgb Hct MCV MCH MCHC RDW Plt Count MPV % Immature Plt Fraction Sodium Potassium 3.4 Chloride Carbon Dioxide Anion Gap BUN Creatinine Estim Creat Clear Calc Estimated GFR Glucose POC Capillary Glucose 173 H 116 H Calcium Magnesium 01/29/25 01/29/25 01/28/25 05:26 05:26 19:53 WBC 4.7 RBC 4.58 L Hgb 10.3 L Hct 35.8 L MCV 78.2 L MCH 22.5 L MCHC 28.8 L RDW 16.7 H Plt Count 81 L MPV 10.1 % Immature Plt Fraction 5.8 Sodium 133 L Potassium 2.8 L* Chloride 92 L Carbon Dioxide 38 H Anion Gap 3 L BUN 11 Creatinine 0.64 L Estim Creat Clear Calc 115 Estimated GFR > 60 Glucose 114 H POC Capillary Glucose 159 H Calcium 8.6 Magnesium Cancelled 1.9 01/28/25 16:49 WBC RBC Hgb Hct MCV MCH MCHC RDW Plt Count MPV % Immature Plt Fraction Sodium Potassium Chloride Carbon Dioxide Anion Gap BUN Creatinine Estim Creat Clear Calc Estimated GFR Glucose POC Capillary Glucose 114 H Calcium Magnesium Preliminary micro results at discharge 01/24/25 11:22 Blood Culture - Preliminary Blood 01/24/25 11:22 Blood Culture - Preliminary Blood Discharge Plan Discharge Attending physician on discharge: Odessa Veliz Discharging Clinician: Ciara Brower Patient Disposition: Home Activity: may shower Diet: heart healthy Discharge Instructions: Please contnue augmentin antibitoic for total of 8 doses- next dose 01/30 9 am. We will do home o2 eval to see if you need oxygen for home, Please f/uw ith pcp within 1 week after discharge. WE started you on iron supplement here- please continue it at home. IT can make you constipated- so add fruits/veggies in your diet. There is a 5 cm left thyroid nodule. YOu TSH number was normal. F/u with pcp for a routine monitoring. Liver lesion: Indeterminate 1.9 cm low-density lesion in the left lobe of the liver. Please f/u with PCP on further evaluation. Patient Instructions: Antibiotic Form, Apixaban (By mouth) Patient Language: Estonian Stand Alone Forms: General Discharge Information Follow-up/Referrals: Mark,Dequan Chu MD [Primary Care Provider, Unknown] - 2 Weeks Discharge Medications: New amoxicillin-pot clavulanate 875-125 mg tablet 1 tablet PO Q12H Qty: 8 0RF Rx Instructions: next dose 01/30 at 0900 am potassium chloride 20 mEq packet 20 meq PO DAILY Qty: 5 0RF Continued atorvastatin 40 mg tablet 40 mg PO DAILY metformin 500 mg tablet 500 mg PO DAILY carvedilol 25 mg tablet 25 mg PO Q12H Rx Instructions: take 2 tablets twice a day amlodipine 10 mg tablet 10 mg PO DAILY pantoprazole 40 mg tablet,delayed release (DR/EC) 40 mg PO DAILY glimepiride 4 mg tablet 4 mg PO DAILY triamterene-hydrochlorothiazid 37.5-25 mg tablet 1 tablet PO DAILY irbesartan 300 mg tablet 300 mg PO DAILY Eliquis 5 mg tablet 5 mg PO Q12H dapagliflozin propanediol [Farxiga] 10 mg tablet 10 mg PO DAILY Other Ambulatory Orders: Basic Metabolic Panel (Routine) Timeframe: 1 Week Location: Determined by Patient Ordered By: Ciara Brower Complete Blood Count no Diff (Routine) Timeframe: 1 Week Location: Determined by Patient Ordered By: Ciara Brower Date of admission: 01/24/25 14:56 Primary Care Provider: MarkDequan Admitting Provider: Joel Canas Attending physician on admission: Joel Canas Condition: Improved Quality VTE Prophylaxis VTE prophylaxis: mechanical ordered and pharmacologic ordered Hospitalist MIPS Heart Failure (Exclusion) Patient has history of Heart Transplant or Left Ventricular Assistive Device?: No IF YES, STOP HERE Heart Failure (Qualifier) Patient has current or prior documentation of LVEF less than or equal to 40%, or mod/servere depressed LVSF?: No IF NO, STOP HERE
--- NOTE | 2025-01-29 16:11 | HOMEO2EVAL ---
Evaluation was performed at [facility] Home Oxygen Evaluation RC: Home Oxygen (O2) Evaluation Start: 01/26/25 15:55 Freq: ONCE Status: Active Protocol: RPE Activity Type Activity Date Activity User E-sign Co-sign Detail Recorded Client Recorded Date Recorded By Document 01/29/25 15:45 [email or web address] [email or web address] 01/29/25 16:11 CLC Document 01/29/25 15:47 [email or web address] [email or web address] 01/29/25 16:11 CLC Document 01/29/25 15:49 [email or web address] [email or web address] 01/29/25 16:11 CLC Document 01/29/25 15:50 [email or web address] [email or web address] 01/29/25 16:11 CLC Document 01/29/25 15:52 [email or web address] [email or web address] 01/29/25 16:11 CLC Document 01/29/25 15:54 [email or web address] [email or web address] 01/29/25 16:11 CLC Document 01/29/25 15:58 [email or web address] [email or web address] 01/29/25 16:11 CLC 01/29/25 01/29/25 01/29/25 15:45 15:47 15:49 Home O2 Evaluation [Oxygen] -Test Phase Resting Resting Exercise -Oxygen Delivery Room Air Nasal Cannula Nasal Cannula -Oxygen Flow Rate (L/min) 1 1 [Pulse Oximetry] -Pulse Oximetry (90-100 %) 86 L 90 84 L [Pulse Rate] -Pulse Rate (60-100 beats/min) 90 84 93 [Evaluation] -Activity Tolerance Good [Exercise] -Ambulation Distance (feet) 400 -Ambulation Distance (meters) 121.91 [Charges] -Evaluation Charges O2 Evaluation by 01/29/25 01/29/25 01/29/25 15:50 15:52 15:54 Home O2 Evaluation [Oxygen] -Test Phase Exercise Exercise Exercise -Oxygen Delivery Nasal Cannula Nasal Cannula Nasal Cannula -Oxygen Flow Rate (L/min) 2 3 4 [Pulse Oximetry] -Pulse Oximetry (90-100 %) 87 L 86 L 87 L [Pulse Rate] -Pulse Rate (60-100 beats/min) 94 94 114 H [Evaluation] -Activity Tolerance [Exercise] -Ambulation Distance (feet) -Ambulation Distance (meters) [Charges] -Evaluation Charges 01/29/25 15:58 Home O2 Evaluation [Oxygen] -Test Phase Exercise -Oxygen Delivery Nasal Cannula -Oxygen Flow Rate (L/min) 5 [Pulse Oximetry] -Pulse Oximetry (90-100 %) 92 [Pulse Rate] -Pulse Rate (60-100 beats/min) 96 [Evaluation] -Activity Tolerance [Exercise] -Ambulation Distance (feet) -Ambulation Distance (meters) [Charges] -Evaluation Charges
--- NOTE | 2025-01-29 16:12 | PCRCNOTE ---
Patient requires 1 liter per minute with rest and 5 liters per minute with activity. RN Josefina and provider aware of results. 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
== END 2025-01-29 17:35 | disposition home or self-care (01) | DRG 193 ==
LOC: ANHED 09:25 → ANH3MEDSUR 14:09
PROVIDERS: Nurse Practitioner; Nurse Practitioner Gerontology; Student in an Organized Health Care Education/Training Program; Admitting Provider General Practice; Emergency Provider Physician Assistant; PCP Internal Medicine Endocrinology, Diabetes & Metabolism; Visit Provider Student in an Organized Health Care Education/Training Program
DX: J18.9 Pneumonia, unspecified organism (principal); J96.01 Acute respiratory failure with hypoxia; J81.1 Chronic pulmonary edema; D64.9 Anemia, unspecified; E04.1 Nontoxic single thyroid nodule; E11.9 Type 2 diabetes mellitus without complications; I10 Essential (primary) hypertension; I48.91 Unspecified atrial fibrillation; K76.9 Liver disease, unspecified; N28.1 Cyst of kidney, acquired; R59.9 Enlarged lymph nodes, unspecified; Z20.822 Contact with and (suspected) exposure to COVID-19; Z85.46 Personal history of malignant neoplasm of prostate; Z87.891 Personal history of nicotine dependence; Z79.01 Long term (current) use of anticoagulants; Z79.84 Long term (current) use of oral hypoglycemic drugs
CPT/HCPCS: 36415; 36600; 71045; 71275; 74174; 80048; 80053; 82375; 82607; 82728; 82746; 82805; 82948; 83050; 83540; 83550; 83735; 83880; 84132; 84443; 84484; 85018; 85025; 85027; 85055; 85610; 85730; 86738; 87040; 87081; 87449; 87637; 87899; 93005; 93306; 94618; 94640; 96365; 96367; 96375; 99285; A9270; G0378; J0456; J0696; J1938; J3480; J7040; J7050; Q9967

== ENCOUNTER 2025-02-05 08:34 | Outpatient (CLI) | payer MEDICARE, SELFPAY ==
--- OUTSIDE RECORDS SUMMARY | 2025-02-05 08:45 | XMS_ITS | Clinical Summary ---
Author Organization [facility] Address [address] [place] [address] Care Team Providers Care Plant Inspector Name Role Phone Dequan Flores MD Primary Care Provider + Allergies No known active allergies Medications Eliquis 5 mg tablet TAKE 1 TABLET BY MOUTH TWICE DAILY 180 tablet 3 4 03/06/[address] (PROTONIX) 40 mg EC tablet TAKE 1 TABLET BY MOUTH EVERY DAY 90 tablet 3 5 Active amLODIPine (NORVASC) 10 mg tablet TAKE 1 TABLET BY MOUTH EVERY DAY 90 tablet 3 5 Active glimepiride (AMARYL) 4 mg tablet TAKE 1 TABLET(4 MG) BY MOUTH DAILY BEFORE BREAKFAST 90 tablet 3 5 Active triamterene-hydr oCHLOROthiazide 37.5-25 mg per tablet/capsule TAKE 1 TABLET BY MOUTH EVERY DAY 90 tablet 1 5 Active atorvastatin (LIPITOR) 40 mg tablet TAKE 1 TABLET(40 MG) BY MOUTH DAILY 90 tablet 3 5 Active metFORMIN (GLUCOPHAGE) 500 mg tablet TAKE 1 TABLET BY MOUTH EVERY DAY 90 tablet 1 5 Active carvediloL (COREG) 25 mg tablet TAKE 2 TABLETS BY MOUTH TWICE DAILY 360 tablet 1 5 Active dapagliflozin propanediol (Farxiga) 10 mg tablet TAKE 1 TABLET BY MOUTH EVERY DAY 90 tablet 3 5 Active irbesartan (AVAPRO) 300 mg tablet TAKE 1 TABLET(300 MG) BY MOUTH DAILY 90 tablet 3 5 Active Active Problems Problem Noted Date Diagnosed Date Encounter for Medicare annual wellness exam 08/30 Hyperlipidemia 09/30/2015 Assessment & Plan (07/03/2024 2:06 PM ASSISTANT LABORATORY DIRECTOR): LDL at goal on labs from 2020. 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 Continue adequate BP and [...] . Assessment & Plan (07/03/2024 2:06 PM ASSISTANT LABORATORY DIRECTOR): PAF that is rate controlled with carvedilol. [...] atrial fibrillation currently in normal sinus rhythm. [id number] score of 6pts is currently on anticoagulation with Eliquis 5 mg b.i.d. Increase Coreg to 50 mg b.i.d. Assessment & Plan (12/02/2018 8:42 AM CDT): His [id number] score is 4, which puts and in [...] 12/14/2014 Assessment & Plan (07/03/2024 2:07 PM ASSISTANT LABORATORY DIRECTOR): History of white coat hypertension. Well controlled [...] Encounters Date Type Department Care Team Description 01/28/2025 Orders Only [facility] [address] [place] [address] Scanning, Provider 01/26/2025 Orders Only [facility] [address] [place] [address] Scanning, Provider 01/24/2025 8:15 AM CDT Office Visit [facility] at [address] [address] Rachell Rosales PA Shortness of breath (Primary Dx); Hypoxia 12/25/2024 Telephone [facility] [address] [facility] [place] [address] Dequan Flores MD Sinusitis 12/05/2024 Results Follow-Up Cardiology Juliano Ordonez MD Lipid panel 12/05/2024 Telephone [facility] Medicine Cardiology [address] [place] [address] 8th [place] [address] [place] [id number] Manohar Sauer NP Lab Results from Last 3 Months Immunizations Immunization Administration Dates Next Due Pfizer SARS-CoV-2 Monovalent Vaccination (12+ Yrs) PURPLE 07/18/2020,06/27/2020 Surgical History Surgery Date Site/Laterality Comments PROSTATE SURGERY Prostate Surgery - (Added by TW Conv) MS TONSILLECTOMY & ADENOIDEC ABBY <AGE 12 Tonsillectomy [...] on file Legal Sex Male 7:44 PM ASSISTANT LABORATORY DIRECTOR Gender Identity Not on file Sexual Orientation [...] Body Mass Index 45.13 07/03/2024 1:08 PM ASSISTANT LABORATORY DIRECTOR Plan of Treatment Health Maintenance Due Date Last Done Comments Albumin Creatinine Ratio, Urine 1945 Hepatitis C Screening 1945 Dilated Eye Exam 1945 Foot Exam 1945 DTaP/Tdap/Td Vaccine (1 - Tdap) 1957 Hepatitis B Screening 02/05/1964 Pneumococcal vaccine 65+ (1 of 2 - PCV) 1965 Zoster Vaccine (1 of 2) 02/05/1996 Depression Screening 09/20/2024 09/21/2023 Fall Risk Assessment 09/20/2024 09/21/2023 Well Visit 65+ 09/20/2024 09/21/2023 eGFR 09/20/2024 09/21/2023, 04/01, 09/15/2022, Additional history exists Hemoglobin A1C 10/22/2024 04/24/2024, 08/30, 03/22/2023, Additional history exists Covid-19 Vaccine ( - 2024- 6 season) 2025 03/25/2021, 07/18/2020, 06/27/2020 Influenza Vaccine (#1) 2025 Lipid Panel 12/04/2025 12/04/2024, 10/07/2022, 03/17/2022, Additional history exists Abdominal Aortic Aneurysm (A AA) Screen Completed 12/10/2014 Procedures Procedure Name Priority Date/Time Associated Diagnosis Comments SCAN - RADIOLOGY/IMAGING 01/28/2025 10:37 AM CDT SCAN - RADIOLOGY/IMAGING 01/26/2025 4:54 PM CDT LIPID PANEL Routine 12/04/2024 9:52 AM CDT Mixed hyperlipidemia POCT HEMOGLOBIN A1C Routine 04/24/2024 9 :52 AM ASSISTANT LABORATORY DIRECTOR Type 2 diabetes mellitus with hyperglycemia, without [...] Recently Relevant to Health Maintenance Results * SCAN - RADIOLOGY/IMAGING (01/28/2025 10:37 AM CDT) Anatomical Region Laterality Modality Other us Provider Scanning Final Result * SCAN - RADIOLOGY/IMAGING (01/26/2025 4:54 PM CDT) Anatomical Region Laterality Modality Other us Provider Scanning Final Result * (ABNORMAL) Lipid panel (12/04/2024 9:52 AM CDT) Cholesterol 69 <200 mg/dL [facility] [employer] HDL 30(L) > OR = 40 mg/dL [facility] Triglycerides 34 <150 mg/dL [employer] [facility] LDL 29 mg/dL (calc) [employer] Comment: Reference range: <100 Desirable range <100 mg/dL for primary prevention; <70 mg/dL for patients with CHD or diabetic patients with > or = 2 CHD risk factors. LDL-C is now calculated using the Shala calculation, which is a validated novel method providing better accuracy than the Friedewald equation in the estimation of LDL-C. Abdiel PEOPLES et al. GAB. 2013;310(19): 2125-8987 (http://education.Funding Options/faq/LSJ557) Chol/HDL ratio 2.3 <5.0 (calc) [employer] karen Dodge Non-HDL, (LDL+VLDL) 39 <130 mg/dL (calc) [employer] [facility] Comment: For patients with diabetes plus 1 major ASCVD risk factor, treating to a non-HDL-C goal of <100 mg/dL (LDL-C of <70 mg/dL) is considered a therapeutic option. Blood 12/04/2024 9:52 AM CDT 12/04/2024 9:52 AM CDT Narrative [facility] - 12/05/2024 1:01 AM CDT FASTING:YES FASTING: YES us Manohar Sauer NP LAB BLOOD ORDERABLES Fin al Result [facility] [address] [place] [address] * POCT hemoglobin A1c (04/24/2024 9:52 AM ASSISTANT LABORATORY DIRECTOR) Hemoglobin A1C, POC 6.5 4.0 - 5.6 % Blood 04/24/2024 9:52 AM ASSISTANT LABORATORY DIRECTOR us Dequan Flores MD POINT OF CARE TEST ORDER NIESHA Final Result * (ABNORMAL) Comprehensive metabolic panel (09/21/2023 8:33 AM CDT) Glucose 185(H) 70 - 99 mg/dL [facility] [...] - 09/22/2023 3:35 AM CDT Performed at: [address] [place] [id number] Change Manager: Mino Weiner PhD, Phone: [phone] Dequan Flores MD LAB BLOOD ORDERABLES Fin [...] agrees with it. ACC# Date Time Exam [id number] Dec 10, 2014 08:07:[id number] Abd & Pelvis wo cont [id number] Dec 10, 2014 08:07:[id number] Chest without contrast EXAMINATION: CT chest, [...] YEBOAH M.D. on Dec 10 2014 11:37A [id number] Procedure Note Provider, MD Yosi - 09/17/2016 PUNEET YEBOAH M.D. ROSALINDA PUENTE M.D. FINAL REPORT The radiology attending physician has personally reviewed this study, and has reviewed and/or edited this written report and agrees with it. ACC# Date Time Exam [id number] Dec 10, 2014 08:07:[id number] Abd & Pelvis wo cont [id number] Dec 10, 2014 08:07:[id number] Chest without contrast EXAMINATION: CT chest, [...] YEBOAH M.D. on Dec 10 2014 11:37A [id number] Historical Provider MD LUGO CT PROCEDURES Final R esult from Last 3 Months or Most Recently Relevant to Health Maintenance Insurance MEDICARE [facility] Address: [facility] [address] [place] [address] [facility] MEDICARE [facility] MEDICARE [facility] MEDICARE [facility] Address: [address] [address] [place] [address] [facility] Care Teams Plant Inspector Relationship Specialty Start Date End Date Dequan Flores MD PCP - General 11/20/16
--- OUTSIDE RECORDS SUMMARY | 2025-02-05 08:45 | XMS_ITS | Encounter Summary ---
Author Organization [facility] Address [address] [place] [address] Care Team Providers Care Traveling Operator Name Role Phone Deuqan Flores MD Primary Care Provider + Encounter Details Date Type Department Care Team (Latest Contact Info) Description 12/05/2024 Results Follow-Up Cardiology Juliano Ordonez MD [address] [address] Lipid panel Social History Tobacco Use Types Packs/Day Years Used Date Smoking Tobacco: Former Cigarettes Q uit: 1998 Smokeless Tobacco: Never PHQ-2 Answer Date Recorded PHQ-2 Total Score (If total score is 3 or more points, staff should administer the PHQ-9) 0 09/21/2023 Sex and Gender Information Value Date Recorded Sex Assigned at Not on file Legal Sex Male 7:44 PM AVID EDITOR Gender Identity Not on file Sexual Orientation Not on file documented as of this encounter Plan of Treatment Not on file documented as of this encounter Visit Diagnoses Not on filedocumented in this encounter Care Teams Traveling Operator Relationship Specialty Start Date End Date Dequan Flores MD PCP - General 11/20/16 documented as of this encounter
[2025-02-05 09:04] LABS: Hematocrit 38.7 % (42.0-52.0); Hemoglobin 11.4 g/dL (14.0-18.0); Mean Corpuscular HGB Conc 29.5 g/dl (32-36); Mean Corpuscular Hemoglobin 23.1 pg (26-34); Mean Corpuscular Volume 78.5 fl (80-100); Platelet Count Result 105 k/mm3 (150-375); Red Blood Count 4.93 M/mm3 (4.6-6.20); White Blood Count 4.4 K/mm3 (4.5-10.0)
[2025-02-05 09:34] LABS: Anion Gap 9 mmol/L (4-12); Blood Urea Nitrogen 13 mg/dL (9-20); Calcium 9.2 mg/dL (8.4-10.2); Carbon Dioxide 24 mmol/L (22-30); Chloride 104 mmol/L (98-107); Estimated Glomerular Filt Rate > 60; Glucose 136 mg/dL (65-110); Potassium 3.8 mmol/L (3.4-5.0); Sodium 137 mmol/L (137-145)
== END 2025-02-05 08:35 | disposition home or self-care (01) ==
LOC: ANHLAB 08:36
PROVIDERS: PCP Internal Medicine Endocrinology, Diabetes & Metabolism; Visit Provider Nurse Practitioner
DX: E87.6 Hypokalemia (principal); J18.9 Pneumonia, unspecified organism
CPT/HCPCS: 36415; 80048; 85027